=== PATIENT | male | born 1965 | race Caucasian/White ===

== ENCOUNTER 2016-05-12 13:41 | Emergency (ER) | payer BC, OTHER ==
--- NOTE | 2016-05-12 15:04 | REP ---
Clinical: Trauma. Technique: AP, lateral, bilateral oblique views right wrist . Findings: The carpal bones, surrounding osseous structures, soft tissues, and joint spaces are normal. There is no evidence for acute fracture or dislocation. No subcutaneous emphysema or radiodense foreign body. Impression: No acute fracture or dislocation Signed by Reginaldo Bennett MD 05/12/2016 02:56 P
--- NOTE | 2016-05-12 15:10 | EDDOCDS ---
Physician Documentation [facility] Name: Fernando Bourne Age: 50 yrs Sex: Male : 1965 Arrival Date: 05/12/2016 Time: 13:41 Bed 13 Private MD: El Ricardo Disposition: 05/12/16 14:53 Discharged to Home/Self Care. Impression: Unspecified sprain of right wrist. - Condition is Stable. - Discharge Instructions: Wrist Pain, Wrist Splint, [id number]. - Prescriptions for Ibuprofen 600 mg Oral Tablet - take 1 tablet by ORAL route every 6 hours As needed take with food; 30 tablet. - Medication Reconciliation, Local Pharmacy Hours form. - Follow up: El Ricardo; When: 4 - 5 days; Reason: Recheck today's complaints, Continuance of care. Follow up: [facility]; When: Call to arrange an appointment; Reason: Further diagnostic work-up, Continuance of care. - Problem is an ongoing problem. - Symptoms are unchanged. Historical: - Allergies: PENICILLINS; - Home Meds: 1. pantoprazole oral oral Unknown once daily - PMHx: GERD; - PSHx: Cholecystectomy; - Social history: Smoking status: Patient/guardian denies using No barriers to communication noted, The patient speaks fluent Italian. - Family history: Not pertinent. - : The pt / caregiver states he / she is not on anticoagulants. Home medication list is obtained from the patient. - Exposure Risk Screening:: None identified. Vital Signs: 05/12 13:42 BP 155 / 87; Pulse 104; Resp 18 S; Temp 99.3(O); Pulse Ox 98% on R/A; Weight 99.79 kg / gr2 220 lbs (R); Height 6 ft. 0 in. (182.88 cm) (R); Pain 6/10; 15:07 BP 136 / 78; Pulse 89; Resp 16; Temp 98.5(O); Pulse Ox 99% on R/A; Pain 2/10; js13 13:42 Body Mass Index 29.84 (99.79 kg, 182.88 cm) gr2 MDM: 14:28 Wrist, Complete Ordered. EDMS 14:54 Splint ordered. ke Signatures: Dispatcher [employer] EDMS Kacey Gentile RN RN Gabriel Lewis, EVALUATOR TRANSFER STUDENTS EVALUATOR TRANSFER STUDENTS Iliana Coleman,RN RN js13 MTDD
--- NOTE | 2016-05-12 15:10 | EDDOCDS ---
Nurse's Notes [facility] Name: Fernando Bourne Age: 50 yrs Sex: Male : 1965 Arrival Date: 05/12/2016 Time: 13:41 Bed 13 Private MD: El Ricardo Diagnosis: Unspecified sprain of right wrist Presentation: 05/12 13:51 Presenting complaint: Patient states: Pt presents with pain right wrist wrenched it dls while using a drill at work 2-3 weeks ago. Adult Sepsis Screening: The patient does not have new or worsening altered mentation. Patient's respiratory rate is less than 22. Systolic blood pressure is greater than 100. Patient has a qSOFA score of 0- Negative Sepsis Screen. Suicide/Homicide risk assessment- the patient denies having any suicidal and/or homicidal ideations and does not present with any other emotional, behavioral or mental health complaints. Status: Patient is not a claims service representative or dependent. Transition of care: patient was not received from another setting of care. 13:51 Acuity: LUBNA Level 4 dls 13:51 Method Of Arrival: Walkin/Carried/Asstd dls Triage Assessment: 13:53 General: Appears in no apparent distress, Behavior is cooperative. Pain: Pain currently dls is 4 out of 10 on a pain scale. HIV screening NA for this visit Offered previously. Musculoskeletal: No deficits noted. Historical: - Allergies: PENICILLINS; - Home Meds: 1. pantoprazole oral oral Unknown once daily - PMHx: GERD; - PSHx: Cholecystectomy; - Social history: Smoking status: Patient/guardian denies using No barriers to communication noted, The patient speaks fluent Pashto. - Family history: Not pertinent. - : The pt / caregiver states he / she is not on anticoagulants. Home medication list is obtained from the patient. - Exposure Risk Screening:: None identified. Screenin:07 Screening information is obtained from the patient. Fall risk: No risks identified. js13 Assistance ADL's: requires no assistance with activities of daily living. Abuse/DV Screen: The patient / caregiver reports he/she is: not in a situation that causes fear, pain or injury. Nutritional screening: No deficits noted. Advance Directives: There is no active DNR order. home support is adequate. Assessment: 15:07 General: Appears in no apparent distress, comfortable, Behavior is appropriate for age, js13 cooperative. Pain: Location: right hand. Neurological: Level of Consciousness is awake, alert. Respiratory: No deficits noted. Derm: Skin is pink, warm & dry. Musculoskeletal: Circulation, motion, and sensation intact Range of motion intact in right wrist. Vital Signs: 13:42 BP 155 / 87; Pulse 104; Resp 18 S; Temp 99.3(O); Pulse Ox 98% on R/A; Weight 99.79 kg gr2 (R); Height 6 ft. 0 in. (182.88 cm) (R); Pain 6/10; 15:07 BP 136 / 78; Pulse 89; Resp 16; Temp 98.5(O); Pulse Ox 99% on R/A; Pain 2/10; js13 13:42 Body Mass Index 29.84 (99.79 kg, 182.88 cm) gr2 Vitals: 13:42 Log In Time: May 12, 2016 at 13:42. gr2 ED Course: 13:42 Patient visited by Amilcar Clements. gr2 13:42 El Ricardo is Private Physician. gr2 13:42 Patient moved to Waiting gr2 13:44 Patient visited by Amilcar Clements. gr2 13:44 Patient moved to Pre RCE gr2 13:52 Triage Initiated dls 14:08 Iliana Cartwright,RN is Primary Nurse. kcs 14:08 Patient moved to 13 kcs 14:10 [facility]. ke 14:10 Patient visited by Gabriel Hernández FNP. ke 14:10 Patient visited by Gabriel Hernández FNP. ke 14:47 Patient visited by Gabriel Hernández FNP. ke 14:51 El Ricardo is Referral Physician. ke 14:51 [facility] is Referral Physician. ke 15:07 The patient / caregiver is instructed regarding the plan of care and ED course. js13 15:07 No IV's were initiated during this patient's visit. No procedures done that require 13 assistance. Velcro wrist splint applied to right wrist. Patient with positive distal sensation and brisk distal capillary refill after application. Order Results: There are currently no results for this order. Outcome: 14:53 Discharge ordered by Provider. ke 15:07 Discharge Assessment: Patient awake, alert and oriented x 3. No cognitive and/or js13 functional deficits noted. Patient verbalized understanding of disposition instructions. patient administered narcotics - no. The following High Risk Discharge criteria are identified: None. Discharged to home ambulatory, with significant other. Condition: stable. Discharge instructions given to patient, Instructed on discharge instructions, follow up and referral plans. medication usage, Demonstrated understanding of instructions, medications, Pt was receptive of discharge instructions/ teaching. Prescriptions given X 1. No special radiology studies were completed. Property :Personal belongings accompany Pt. 15:10 Patient left the ED. js13 Signatures: Maria Guadalupe Talavera, RN RN Kacey Addison RN RN Gabriel Lewis, Iliana TaylorRN RN js13 Amilcar Clements gr2 MEGHA
--- NOTE | 2016-05-14 16:11 | EDDOCDS ---
Physician Documentation [facility] Name: Fernando Bourne Age: 50 yrs Sex: Male : 1965 Arrival Date: 05/12/2016 Time: 13:41 Bed 13 Private MD: El Ricardo Disposition: 05/12/16 14:53 Discharged to Home/Self Care. Impression: Unspecified sprain of right wrist. - Condition is Stable. - Discharge Instructions: Wrist Pain, Wrist Splint, [id number]. - Prescriptions for Ibuprofen 600 mg Oral Tablet - take 1 tablet by ORAL route every 6 hours As needed take with food; 30 tablet. - Medication Reconciliation, Local Pharmacy Hours form. - Follow up: El Ricardo; When: 4 - 5 days; Reason: Recheck today's complaints, Continuance of care. Follow up: [facility]; When: Call to arrange an appointment; Reason: Further diagnostic work-up, Continuance of care. - Problem is an ongoing problem. - Symptoms are unchanged. Historical: - Allergies: PENICILLINS; - Home Meds: 1. pantoprazole oral oral Unknown once daily - PMHx: GERD; - PSHx: Cholecystectomy; - Social history: Smoking status: Patient/guardian denies using No barriers to communication noted, The patient speaks fluent Greek. - Family history: Not pertinent. - : The pt / caregiver states he / she is not on anticoagulants. Home medication list is obtained from the patient. - Exposure Risk Screening:: None identified. Vital Signs: 05/12 13:42 BP 155 / 87; Pulse 104; Resp 18 S; Temp 99.3(O); Pulse Ox 98% on R/A; Weight 99.79 kg / gr2 220 lbs (R); Height 6 ft. 0 in. (182.88 cm) (R); Pain 6/10; 15:07 BP 136 / 78; Pulse 89; Resp 16; Temp 98.5(O); Pulse Ox 99% on R/A; Pain 2/10; js13 13:42 Body Mass Index 29.84 (99.79 kg, 182.88 cm) gr2 MDM: 14:28 Wrist, Complete Ordered. EDMS 14:54 Splint ordered. ke 15:13 [facility] Payment Agreement was scanned into MED[employer] and attached to record. jp5 15:13 Financial registration complete. jp5 05/13 04:01 T-Sheet-- Draft Copy was scanned into [employer] and attached to record. hs2 Signatures: Dispatcher [employer] Kacey Camarena, RN RN dls Gabriel Hernández, INFECTIOUS DISEASES PHYSICIAN INFECTIOUS DISEASES PHYSICIAN Iliana Coleman RN RN js13 Chase Thomas jp5 Belen Cerda, Reg Reg hs2 The chart was reviewed and I authenticate all verbal orders and agree with the evaluation and treatment provided.Attachments: 05/12 15:13 [facility] Payment Agreement jp5 05/13 04:01 T-Sheet-- Draft Copy hs2 Chart Complete MTDD
--- NOTE | 2016-05-14 16:11 | EDDOCDS ---
Physician Documentation [facility] Name: Fernando Bourne Age: 50 yrs Sex: Male : 1965 Arrival Date: 05/12/2016 Time: 13:41 Bed 13 Private MD: El Ricardo Disposition: 05/12/16 14:53 Discharged to Home/Self Care. Impression: Unspecified sprain of right wrist. - Condition is Stable. - Discharge Instructions: Wrist Pain, Wrist Splint, [id number]. - Prescriptions for Ibuprofen 600 mg Oral Tablet - take 1 tablet by ORAL route every 6 hours As needed take with food; 30 tablet. - Medication Reconciliation, Local Pharmacy Hours form. - Follow up: El Ricardo; When: 4 - 5 days; Reason: Recheck today's complaints, Continuance of care. Follow up: [facility]; When: Call to arrange an appointment; Reason: Further diagnostic work-up, Continuance of care. - Problem is an ongoing problem. - Symptoms are unchanged. Historical: - Allergies: PENICILLINS; - Home Meds: 1. pantoprazole oral oral Unknown once daily - PMHx: GERD; - PSHx: Cholecystectomy; - Social history: Smoking status: Patient/guardian denies using No barriers to communication noted, The patient speaks fluent Yoruba. - Family history: Not pertinent. - : The pt / caregiver states he / she is not on anticoagulants. Home medication list is obtained from the patient. - Exposure Risk Screening:: None identified. Vital Signs: 05/12 13:42 BP 155 / 87; Pulse 104; Resp 18 S; Temp 99.3(O); Pulse Ox 98% on R/A; Weight 99.79 kg / gr2 220 lbs (R); Height 6 ft. 0 in. (182.88 cm) (R); Pain 6/10; 15:07 BP 136 / 78; Pulse 89; Resp 16; Temp 98.5(O); Pulse Ox 99% on R/A; Pain 2/10; js13 13:42 Body Mass Index 29.84 (99.79 kg, 182.88 cm) gr2 MDM: 14:28 Wrist, Complete Ordered. EDMS 14:54 Splint ordered. ke 15:13 [facility] Payment Agreement was scanned into MEDHOST and attached to record. jp5 15:13 Financial registration complete. jp5 05/13 04:01 T-Sheet-- Draft Copy was scanned into [employer] and attached to record. hs2 Signatures: Dispatcher [employer] Kacey Camarena, RN RN dls Gabriel Hernández, SHOP DIRECTOR SHOP DIRECTOR Iliana Coleman RN RN js13 Chase Thomas jp5 Belen Cerda, Reg Reg hs2 The chart was reviewed and I authenticate all verbal orders and agree with the evaluation and treatment provided.Attachments: 05/12 15:13 [facility] Payment Agreement jp5 05/13 04:01 T-Sheet-- Draft Copy hs2 Chart Complete MTDD
--- NOTE | 2016-05-14 16:11 | EDDOCDS ---
Nurse's Notes [facility] Name: Fernando Bourne Age: 50 yrs Sex: Male : 1965 Arrival Date: 05/12/2016 Time: 13:41 Bed 13 Private MD: El Ricardo Diagnosis: Unspecified sprain of right wrist Presentation: 05/12 13:51 Presenting complaint: Patient states: Pt presents with pain right wrist wrenched it dls while using a drill at work 2-3 weeks ago. Adult Sepsis Screening: The patient does not have new or worsening altered mentation. Patient's respiratory rate is less than 22. Systolic blood pressure is greater than 100. Patient has a qSOFA score of 0- Negative Sepsis Screen. Suicide/Homicide risk assessment- the patient denies having any suicidal and/or homicidal ideations and does not present with any other emotional, behavioral or mental health complaints. Status: Patient is not a personal care service provider or dependent. Transition of care: patient was not received from another setting of care. 13:51 Acuity: LUBNA Level 4 dls 13:51 Method Of Arrival: Walkin/Carried/Asstd dls Triage Assessment: 13:53 General: Appears in no apparent distress, Behavior is cooperative. Pain: Pain currently dls is 4 out of 10 on a pain scale. HIV screening NA for this visit Offered previously. Musculoskeletal: No deficits noted. Historical: - Allergies: PENICILLINS; - Home Meds: 1. pantoprazole oral oral Unknown once daily - PMHx: GERD; - PSHx: Cholecystectomy; - Social history: Smoking status: Patient/guardian denies using No barriers to communication noted, The patient speaks fluent Maltese. - Family history: Not pertinent. - : The pt / caregiver states he / she is not on anticoagulants. Home medication list is obtained from the patient. - Exposure Risk Screening:: None identified. Screenin:07 Screening information is obtained from the patient. Fall risk: No risks identified. js13 Assistance ADL's: requires no assistance with activities of daily living. Abuse/DV Screen: The patient / caregiver reports he/she is: not in a situation that causes fear, pain or injury. Nutritional screening: No deficits noted. Advance Directives: There is no active DNR order. home support is adequate. Assessment: 15:07 General: Appears in no apparent distress, comfortable, Behavior is appropriate for age, js13 cooperative. Pain: Location: right hand. Neurological: Level of Consciousness is awake, alert. Respiratory: No deficits noted. Derm: Skin is pink, warm & dry. Musculoskeletal: Circulation, motion, and sensation intact Range of motion intact in right wrist. Vital Signs: 13:42 BP 155 / 87; Pulse 104; Resp 18 S; Temp 99.3(O); Pulse Ox 98% on R/A; Weight 99.79 kg gr2 (R); Height 6 ft. 0 in. (182.88 cm) (R); Pain 6/10; 15:07 BP 136 / 78; Pulse 89; Resp 16; Temp 98.5(O); Pulse Ox 99% on R/A; Pain 2/10; js13 13:42 Body Mass Index 29.84 (99.79 kg, 182.88 cm) gr2 Vitals: 13:42 Log In Time: May 12, 2016 at 13:42. gr2 ED Course: 13:42 Patient visited by Amilcar Clements. gr2 13:42 El Ricardo is Private Physician. gr2 13:42 Patient moved to Waiting gr2 13:44 Patient visited by Amilcar Clements. gr2 13:44 Patient moved to Pre RCE gr2 13:52 Triage Initiated dls 14:08 Iliana Cartwright,RN is Primary Nurse. kcs 14:08 Patient moved to 13 kcs 14:10 [facility] FNP [facility]. ke 14:10 Patient visited by Gabriel Hernández FNP. ke 14:10 Patient visited by Gabriel Hernández FNP. ke 14:47 Patient visited by Gabriel Hernández FNP. ke 14:51 El Ricardo is Referral Physician. ke 14:51 [facility] is Referral Physician. ke 15:07 The patient / caregiver is instructed regarding the plan of care and ED course. js13 15:07 No IV's were initiated during this patient's visit. No procedures done that require js13 assistance. Velcro wrist splint applied to right wrist. Patient with positive distal sensation and brisk distal capillary refill after application. 15:13 [facility] Payment Agreement was scanned into [employer] and attached to record. jp5 15:18 Wrist, Complete Returned. EDMS 05/13 04:01 T-Sheet-- Draft Copy was scanned into [employer] and attached to record. hs2 Order Results: Radiology Order: Wrist, Complete Test: Wrist, Complete REASON FOR EXAMINATION: Trauma; Clinical: Trauma.; ; Technique: AP, lateral, bilateral oblique views right wrist .; ; Findings: The carpal bones, surrounding osseous structures, soft tissues, and; joint spaces are normal. There is no evidence for acute fracture or dislocation.; No subcutaneous emphysema or radiodense foreign body.; ; Impression:; No acute fracture or dislocation; ; ; Signed by; Reginaldo Bennett MD 05/12/2016 02:56 P; Outcome: 05/12 14:53 Discharge ordered by Provider. jacek 15:07 Discharge Assessment: Patient awake, alert and oriented x 3. No cognitive and/or js13 functional deficits noted. Patient verbalized understanding of disposition instructions. patient administered narcotics - no. The following High Risk Discharge criteria are identified: None. Discharged to home ambulatory, with significant other. Condition: stable. Discharge instructions given to patient, Instructed on discharge instructions, follow up and referral plans. medication usage, Demonstrated understanding of instructions, medications, Pt was receptive of discharge instructions/ teaching. Prescriptions given X 1. No special radiology studies were completed. Property :Personal belongings accompany Pt. 15:10 Patient left the ED. js13 Signatures: Dispatcher [facility] Maria Guadalupe Talavera, RN RN Kacey Addison RN RN Gabriel Lewis, PRODUCTION TROUBLESHOOTER PRODUCTION TROUBLESHOOTER Iliana Coleman RN RN js13 Amilcar Clements2 Chase Thomas jp5 Belen Cerda, Reg Reg hs2 Chart Complete [facility]
== END 2016-05-12 15:10 | disposition home or self-care (01) ==
LOC: M ED 13:41
DX: S63.501A Unspecified sprain of right wrist, initial encounter (principal); W23.1XXA Caught, crushed, jammed, or pinched between stationary objects, initial encounter; Y92.89 Other specified places as the place of occurrence of the external cause; Y93.89 Activity, other specified; Y99.0 Civilian activity done for income or pay; K21.9 Gastro-esophageal reflux disease without esophagitis; Z90.49 Acquired absence of other specified parts of digestive tract; Z79.899 Other long term (current) drug therapy; Z88.0 Allergy status to penicillin

== ENCOUNTER 2016-11-13 13:30 | Emergency (ER) | payer BC, OTHER ==
[~2016-11-13] VITALS: Ht 182.9 cm; Wt 103.0 kg
[2016-11-13] MEDS ORDERED: CIAL10TA (13:37)
[2016-11-13] MEDS ORDERED: PANT40TA2 (13:37)
[2016-11-13] MEDS ORDERED: MORPHINE 4 MG/ML 1ML SYRINGE IV PRN (14:30)
[2016-11-13] MEDS ORDERED: KETOROLAC 30 MG/ML VIAL (J1885) IV ONE (14:30)
--- NOTE | 2016-11-13 14:48 | REP ---
Clinical: Renal colic and lower back pain. Comparison: 05/26/2014. Findings: Lung bases are clear. Visualized heart and pericardium normal. Liver, spleen, pancreas, bilateral adrenal glands and kidneys are relatively normal. Subtle 1.3 cm hypodensities in the bilateral kidneys at the lower poles likely represent cysts. There is no hydronephrosis, intrarenal or obstructing ureteral calculi identified. The patient is status post cholecystectomy. The enteric system is without obstruction or acute inflammatory process. Normal terminal ileum and appendix identified in the right lower quadrant. Pelvis demonstrates normal bladder and age appropriate prostate/seminal vesicles. No ascites. No free air. No adenopathy. Abdominal aorta without aneurysm. Impression: 1. Bilateral lower pole renal hypodensities likely representing cysts. No evidence for acute urinary tract pathology. 2. No acute abdominopelvic pathology Signed by Reginaldo Bennett MD 11/13/2016 02:40 P
[2016-11-13 14:52] LABS: BASO % 0.6 % (0.0-1.0); EOS # 0.3 K/mm3 (0.0-0.50); LARGE UNSTAINED CELL # 0.1 K/mm3 (0.0-0.4); LARGE UNSTAINED CELL % 1.5 % (0.0-4.0); LYMPH # 2.2 K/mm3 (1.5-4.5); LYMPH % 34.7 % (24.0-44.0); MEAN CORPUSCULAR HEMOGLOBIN 31.8 pg (27.0-33.0); MEAN CORPUSCULAR HGB CONC 35.2 g/dl (32.0-36.5); MEAN CORPUSCULAR VOLUME 90.5 fl (80.0-96.0); MONO # 0.4 K/mm3 (0.0-0.8); MONO % 5.9 % (0.0-5.0); NEUTROPHILS # 3.2 K/mm3 (1.8-7.7); NEUTROPHILS % 52.4 % (36.0-66.0); PLATELET COUNT, AUTOMATED 178 k/mm3 (150-450); RED CELL DISTRIBUTION WIDTH 14.1 % (11.5-14.5); WHITE BLOOD COUNT 6.1 K/mm3 (4.0-10.0)
[2016-11-13 15:09] LABS: ANION GAP 7 MEQ/L (8-16); BLOOD UREA NITROGEN 15 MG/DL (7-18); CALCIUM LEVEL 8.8 MG/DL (8.5-10.1); CARBON DIOXIDE LEVEL 26 MEQ/L (21-32); CHLORIDE LEVEL 111 MEQ/L (98-107); CREATININE FOR GFR 1.08 MG/DL (0.70-1.30); GLOMERULAR FILTRATION RATE > 60.0 (>56); GLUCOSE, FASTING 88 MG/DL (70-105); POTASSIUM SERUM 4.2 MEQ/L (3.5-5.1); SODIUM LEVEL 144 MEQ/L (136-145)
[2016-11-13] MEDS ORDERED: CYCL10TA PO (15:29)
[2016-11-13] MEDS ORDERED: NAPR500T PO (15:29)
[2016-11-13] MEDS ORDERED: HYDR-3713 PO (15:29)
[2016-11-13 15:32] VITALS: BP 124/79
== END 2016-11-13 16:09 | disposition home or self-care (01) ==
LOC: M ED 13:30
DX: N28.1 Cyst of kidney, acquired (principal); M54.5 Low back pain; Z87.442 Personal history of urinary calculi; F17.210 Nicotine dependence, cigarettes, uncomplicated; Z88.0 Allergy status to penicillin; Z79.899 Other long term (current) drug therapy
CPT/HCPCS: 74176; 80048; 81001; 85025; 96374; 96375; 99283; J1885

== ENCOUNTER → 2017-03-25 | Outpatient (REF) | payer OTHER ==
[~2017-03-25] MED LIST: CIAL10TA; CYCL10TA PO; HYDR-3713 PO; NAPR500T PO; PANT40TA2
[2017-03-27 14:16] LABS: PSA TOTAL 0.5 ng/mL (0.0-4.0)
== END ==
LOC: M LABDRAW1 15:52
PROVIDERS: ATTEND Nurse Practitioner Family
DX: Z12.5 Encounter for screening for malignant neoplasm of prostate (principal)

== ENCOUNTER → 2017-06-22 | Outpatient (REF) | payer OTHER ==
[2017-06-22 19:08] LABS: BASO % 0.5 % (0.0-1.0); EOS # 0.4 10^3/uL (0.0-0.50); EOS % 4.6 % (0.0-3.0); HEMATOCRIT 46.2 % (42.0-52.0); HEMOGLOBIN 15.4 g/dl (14.0-18.0); IMMATURE GRANULOCYTE % 0.4 % (0-3.0); LYMPH # 2.7 10^3/uL (1.5-4.5); MEAN CORPUSCULAR HGB CONC 33.3 g/dl (32.0-36.5); MONO # 0.6 10^3/uL (0.0-0.8); MONO % 7.3 % (0.0-5.0); NEUTROPHILS # 4.2 10^3/uL (1.8-7.7); NEUTROPHILS % 53.2 % (36.0-66.0); PLATELET COUNT, AUTOMATED 179 10^3/uL (150-450); RED BLOOD COUNT 4.97 10^6/uL (4.30-6.10); RED CELL DISTRIBUTION WIDTH 13.2 % (11.5-14.5)
[2017-06-22 19:48] LABS: APPEARANCE, URINE CLEAR (CLEAR); BACTERIA, URINE AUTO NEGATIVE (NEGATIVE); BILIRUBIN, URINE AUTO NEGATIVE (NEGATIVE); BLOOD, URINE BLOOD NEGATIVE (NEGATIVE); CALCIUM OXALATE CRYSTALS SMALL; COLOR, URINE AMBER (YELLOW); GLUCOSE, URINE (UA) AUTO NEGATIVE (NEGATIVE); KETONE, URINE AUTO NEGATIVE (NEGATIVE); LEUKOCYTE ESTERASE, URINE AUTO NEGATIVE (NEGATIVE); MUCUS, URINE SMALL (NEGATIVE); NITRITE, URINE AUTO NEGATIVE (NEGATIVE); PROTEIN, URINE AUTO NEGATIVE (NEGATIVE); RBC, URINE AUTO 1 /HPF (0-3); SPECIFIC GRAVITY URINE AUTO 1.027 (1.002-1.035); SQUAMOUS EPITHELIAL CELL UR AU 0 /HPF (0-6); WBC, URINE AUTO 1 /HPF (0-3)
== END ==
LOC: M LAB REF 17:34
DX: N39.0 Urinary tract infection, site not specified (principal)

== ENCOUNTER → 2017-08-13 | Outpatient (REF) | payer OTHER ==
[2017-08-13 17:19] LABS: APPEARANCE, URINE CLEAR (CLEAR); BACTERIA, URINE AUTO NEGATIVE (NEGATIVE); BILIRUBIN, URINE AUTO NEGATIVE (NEGATIVE); BLOOD, URINE BLOOD NEGATIVE (NEGATIVE); COLOR, URINE AMBER (YELLOW); GLUCOSE, URINE (UA) AUTO NEGATIVE (NEGATIVE); KETONE, URINE AUTO TRACE mg/dL (NEGATIVE); LEUKOCYTE ESTERASE, URINE AUTO NEGATIVE (NEGATIVE); MUCUS, URINE SMALL (NEGATIVE); NITRITE, URINE AUTO NEGATIVE (NEGATIVE); PROTEIN, URINE AUTO NEGATIVE (NEGATIVE); RBC, URINE AUTO 2 /HPF (0-3); SPECIFIC GRAVITY URINE AUTO 1.029 (1.002-1.035); SQUAMOUS EPITHELIAL CELL UR AU 0 /HPF (0-6); WBC, URINE AUTO 1 /HPF (0-3)
== END ==
LOC: M LAB REF 16:28
DX: R39.9 Unspecified symptoms and signs involving the genitourinary system (principal)

== ENCOUNTER → 2017-09-18 | Outpatient (REF) | payer BC, OTHER ==
[2017-09-18 17:26] LABS: APPEARANCE, URINE CLEAR (CLEAR); BACTERIA, URINE AUTO NEGATIVE (NEGATIVE); BILIRUBIN, URINE AUTO NEGATIVE (NEGATIVE); BLOOD, URINE BLOOD NEGATIVE (NEGATIVE); COLOR, URINE AMBER (YELLOW); GLUCOSE, URINE (UA) AUTO NEGATIVE (NEGATIVE); KETONE, URINE AUTO NEGATIVE (NEGATIVE); LEUKOCYTE ESTERASE, URINE AUTO TRACE (NEGATIVE); MUCUS, URINE SMALL (NEGATIVE); NITRITE, URINE AUTO NEGATIVE (NEGATIVE); PROTEIN, URINE AUTO NEGATIVE (NEGATIVE); RBC, URINE AUTO 0 /HPF (0-3); SPECIFIC GRAVITY URINE AUTO 1.028 (1.002-1.035); SQUAMOUS EPITHELIAL CELL UR AU 0 /HPF (0-6); WBC, URINE AUTO 0 /HPF (0-3)
[2017-09-18 18:47] LABS: CHLAMYDIA DNA AMPLIFICATION NEGATIVE (NEGATIVE); GC DNA AMPLIFICATION NEGATIVE (NEGATIVE)
== END ==
LOC: M SMT 16:54
DX: R30.0 Dysuria (principal)
CPT/HCPCS: 81001

== ENCOUNTER → 2017-10-12 | Outpatient (REF) | payer BC, OTHER | LOC: M SMT 17:24 | DX: R30.0 Dysuria (principal) | CPT/HCPCS: 87109 ==

== ENCOUNTER → 2018-03-12 | Outpatient (CLI) | payer BC, OTHER ==
[~2018-03-12] MED LIST changes: -CIAL10TA; -CYCL10TA PO; +E-Z-PAQUE 96% w/w SUSP 176GM BTL As Ordered; -HYDR-3713 PO; -NAPR500T PO; -PANT40TA2
== END ==
LOC: M RAD 07:58
DX: K21.9 Gastro-esophageal reflux disease without esophagitis (principal); R14.2 Eructation; Z86.010 Personal history of colon polyps; R19.5 Other fecal abnormalities
CPT/HCPCS: 74250

== ENCOUNTER → 2018-03-23 | Outpatient (REF) | payer OTHER ==
[2018-03-23 17:41] LABS: PLATELET COUNT, AUTOMATED 207 10^3/uL (150-450)
[2018-03-23 18:09] LABS: INR 1.02; PROTHROMBIN TIME 13.5 SECONDS (12.1-14.4)
[2018-03-23 18:10] LABS: PARTIAL THROMBOPLASTIN TIME 31.4 SECONDS (25.4-37.6)
[2018-03-23 18:22] LABS: COLLAGEN EPINEPHRINE 111 SECONDS (74-162)
== END ==
LOC: M LABNEURO 15:57
DX: Z01.812 Encounter for preprocedural laboratory examination (principal); M50.30 Other cervical disc degeneration, unspecified cervical region
CPT/HCPCS: 85049

== ENCOUNTER → 2018-05-24 | Outpatient (REF) | payer OTHER ==
[~2018-05-24] MED LIST changes: +CIAL10TA; +CYCL10TA PO; -E-Z-PAQUE 96% w/w SUSP 176GM BTL As Ordered; +HYDR-3713 PO; +NAPR-50 PO; +PANT40TA3
[2018-05-24 10:06] LABS: BASO # 0.1 10^3/uL (0.0-0.2); BASO % 0.7 % (0.0-1.0); EOS # 0.3 10^3/uL (0.0-0.50); HEMATOCRIT 48.6 % (42.0-52.0); HEMOGLOBIN 16.1 g/dl (13.5-17.5); LYMPH # 2.4 10^3/uL (1.5-4.5); LYMPH % 28.1 % (24.0-44.0); MEAN CORPUSCULAR HEMOGLOBIN 30.4 pg (27.0-33.0); MEAN CORPUSCULAR HGB CONC 33.1 g/dl (32.0-36.5); MEAN CORPUSCULAR VOLUME 91.7 fl (80.0-96.0); MONO # 0.6 10^3/uL (0.0-0.8); MONO % 6.4 % (0.0-5.0); NEUTROPHILS # 5.2 10^3/uL (1.8-7.7); NEUTROPHILS % 61.6 % (36.0-66.0); PLATELET COUNT, AUTOMATED 163 10^3/uL (150-450); WHITE BLOOD COUNT 8.5 10^3/uL (4.0-10.0)
[2018-05-24 10:35] LABS: ALBUMIN 3.6 GM/DL (3.2-5.2); ALT/SGPT 140 U/L (12-78); BILIRUBIN,TOTAL 0.3 MG/DL (0.2-1.0); BLOOD UREA NITROGEN 12 MG/DL (7-18); CALCIUM LEVEL 8.4 MG/DL (8.5-10.1); CARBON DIOXIDE LEVEL 29 MEQ/L (21-32); CHLORIDE LEVEL 103 MEQ/L (98-107); CHOLESTEROL LEVEL 171 MG/DL (<200); GLOMERULAR FILTRATION RATE > 60.0 (>56); GLUCOSE, FASTING 149 MG/DL (70-100); HDL CHOLESTEROL 20 MG/DL (>40); NON-HDL-C 151 MG/DL; SODIUM LEVEL 140 MEQ/L (136-145); TRIGLYCERIDES LEVEL 716 MG/DL (<150)
[2018-05-24 10:42] LABS: TOTAL 25(OH) VITAMIN D 31.6 NG/ML (30.0-100.0)
[2018-05-26 00:09] LABS: PSA TOTAL 0.4 ng/mL (0.0-4.0)
== END ==
LOC: M LAB REF 08:59
PROVIDERS: ATTEND Nurse Practitioner Family
DX: K21.9 Gastro-esophageal reflux disease without esophagitis (principal); Z12.5 Encounter for screening for malignant neoplasm of prostate; Z13.220 Encounter for screening for lipoid disorders; E55.9 Vitamin D deficiency, unspecified

== ENCOUNTER → 2018-08-11 | Outpatient (REF) | payer OTHER ==
[~2018-08-11] MED LIST changes: -NAPR-50 PO; +NAPR-837 PO
[2018-08-11 10:31] LABS: ALBUMIN 3.7 GM/DL (3.2-5.2); ALT/SGPT 146 U/L (12-78); BILIRUBIN,TOTAL 0.5 MG/DL (0.2-1.0); BLOOD UREA NITROGEN 13 MG/DL (7-18); CALCIUM LEVEL 8.5 MG/DL (8.5-10.1); CARBON DIOXIDE LEVEL 26 MEQ/L (21-32); CHLORIDE LEVEL 109 MEQ/L (98-107); CHOLESTEROL LEVEL 164 MG/DL (<200); CHOLESTEROL RISK RATIO 5.466 (<5); CREATININE FOR GFR 1.21 MG/DL (0.70-1.30); GLOMERULAR FILTRATION RATE > 60.0 (>56); GLUCOSE, FASTING 98 MG/DL (70-100); HDL CHOLESTEROL 30 MG/DL (>40); LDL CHOLESTEROL 103 MG/DL (<100); NON-HDL-C 134 MG/DL; POTASSIUM SERUM 4.4 MEQ/L (3.5-5.1); SODIUM LEVEL 140 MEQ/L (136-145); TOTAL PROTEIN 6.5 GM/DL (6.4-8.2); TRIGLYCERIDES LEVEL 156 MG/DL (<150)
== END ==
LOC: M LAB REF 09:38
PROVIDERS: ATTEND Nurse Practitioner Family
DX: E78.5 Hyperlipidemia, unspecified (principal)

== ENCOUNTER → 2019-03-21 | Outpatient (REF) | payer OTHER ==
[2019-03-21 17:59] LABS: HEMOGLOBIN A1c 5.9 %
[2019-03-21 18:02] LABS: BILIRUBIN,DIRECT 0.1 MG/DL (0.0-0.2); BILIRUBIN,TOTAL 0.6 MG/DL (0.2-1.0); CHOLESTEROL RISK RATIO 4.789 (<5); TOTAL PROTEIN 7.1 GM/DL (6.4-8.2)
[2019-03-21 18:09] LABS: INR 1.09; PROTHROMBIN TIME 13.9 SECONDS (11.8-14.0)
[2019-03-21 18:35] LABS: TOTAL 25(OH) VITAMIN D 46.5 NG/ML (30.0-100.0)
== END ==
LOC: M SFHCPLAZ 14:48
PROVIDERS: ATTEND Family Medicine
DX: E78.2 Mixed hyperlipidemia (principal); R74.0 Nonspecific elevation of levels of transaminase and lactic acid dehydrogenase [LDH]; Z13.1 Encounter for screening for diabetes mellitus; Z13.21 Encounter for screening for nutritional disorder

== ENCOUNTER → 2019-03-28 | Outpatient (CLI) | payer BC, OTHER ==
--- NOTE | 2019-03-28 09:05 | REP ---
ULTRASOUND OF THE ABDOMINAL AORTA: Real-time sonographic evaluation of the abdominal aorta performed. There is no sonographic evidence of abdominal aortic aneurysm. Proximally maximum AP diameter of the abdominal aorta is 2.8 cm, mid aspect 2.2 cm, and distally 1.8 cm. Common iliac arteries are mildly ectatic, right measuring 1.4 cm and left 1.3 cm in AP dimension. IMPRESSION: No sonographic evidence of abdominal aortic aneurysm. Electronically Signed by Jg Hills MD 03/28/2019 09:06 A
== END ==
LOC: M RAD 06:16
PROVIDERS: ATTEND Student in an Organized Health Care Education/Training Program
DX: I71.4 Abdominal aortic aneurysm, without rupture (principal)

== ENCOUNTER → 2019-04-29 | Outpatient (CLI) | payer BC, OTHER ==
--- NOTE | 2019-04-29 15:10 | REP ---
LOW DOSE LUNG SCREENING CT: Low dose lung screening CT performed without the use of intravenous contrast. No suspicious nodule or consolidating infiltrate is seen in either lung. Heart is normal in size. No mediastinal contour abnormality is seen. Thoracic aorta is not dilated. No pleural effusion is seen. There are mild degenerative changes of the spine. IMPRESSION: Lung-RADS category [address] No suspicious nodule bilaterally. Annual low dose lung screening CT recommended. Electronically Signed by Jg Hills MD 04/29/2019 04:56 P
== END ==
LOC: M RAD 14:31
PROVIDERS: ATTEND Student in an Organized Health Care Education/Training Program
DX: Z12.2 Encounter for screening for malignant neoplasm of respiratory organs (principal); F17.210 Nicotine dependence, cigarettes, uncomplicated

== ENCOUNTER → 2019-08-03 | Outpatient (CLI) | payer BC, OTHER ==
--- NOTE | 2019-08-03 07:46 | REP ---
Clinical: Nonalcoholic hepatic steatosis. Technique: Real time hernandez scale ultrasound examination using curved array transducer. Findings: The liver is increased echogenicity suggesting fatty infiltration without focal hepatic lesion identified. The pancreas is normal in appearance and contour. The patient is noted to be status post cholecystectomy. No biliary ductal dilatation is appreciated and the common bile duct measures 4.8 mm diameter. The right kidney is normal in reniform shape without hydronephrosis and measures 12.2 x 7.1 x 5.7 cm; incidental 1.1 cm cyst in the lower pole noted. Visualized abdominal aorta normal. No ascites. Impression: 1. Hepatic steatosis without focal hepatic lesion identified. 2. 1.1 cm simple right renal cyst. Electronically Signed by Reginaldo Bennett MD 08/03/2019 07:37 A
== END ==
LOC: M RAD 06:52
PROVIDERS: ATTEND Internal Medicine Gastroenterology
DX: I85.00 Esophageal varices without bleeding (principal); N28.1 Cyst of kidney, acquired; K76.0 Fatty (change of) liver, not elsewhere classified

== ENCOUNTER → 2019-08-04 | Outpatient (REF) | payer OTHER | LOC: M LAB REF 12:24 | PROVIDERS: ATTEND Nurse Practitioner Family | DX: R30.0 Dysuria (principal) ==

== ENCOUNTER → 2019-08-08 | Outpatient (CLI) | payer BC, OTHER ==
--- NOTE | 2019-08-08 15:19 | REP ---
KUB ABDOMEN AND PELVIS: Two KUB films of abdomen and pelvis performed. Bowel gas pattern is normal with no obstruction. Metallic clips are seen in the right upper quadrant. Phleboliths are again seen in the pelvis. There are mild degenerative changes of the spine. IMPRESSION: No acute abnormalities detected. Normal bowel gas pattern. A few phleboliths are again seen in the pelvis. Electronically Signed by Jg Hills MD 08/08/2019 03:21 P
== END ==
LOC: M WUC 14:37
PROVIDERS: ATTEND Nurse Practitioner Family
DX: I87.8 Other specified disorders of veins (principal); R10.814 Left lower quadrant abdominal tenderness; R30.0 Dysuria

== ENCOUNTER → 2019-08-17 | Outpatient (CLI) | payer BC ==
[2019-08-17 16:25] LABS: HEMATOCRIT 49.4 % (42.0-52.0); HEMOGLOBIN 16.1 g/dl (13.5-17.5); MEAN CORPUSCULAR HEMOGLOBIN 29.8 pg (27.0-33.0); MEAN CORPUSCULAR HGB CONC 32.6 g/dl (32.0-36.5); MEAN CORPUSCULAR VOLUME 91.5 fl (80.0-96.0); PLATELET COUNT, AUTOMATED 176 10^3/uL (150-450); WHITE BLOOD COUNT 6.3 10^3/uL (4.0-10.0)
[2019-08-17 16:27] LABS: ALBUMIN 4.2 GM/DL (3.2-5.2); BILIRUBIN,DIRECT 0.2 MG/DL (0.0-0.2); BILIRUBIN,TOTAL 0.8 MG/DL (0.2-1.0); PERCENT SATURATION 44.3 % (19.7-50.0); THYROID STIMULATING HORMONE 1.44 uIU/ML (0.358-3.740); TOTAL PROTEIN 7.1 GM/DL (6.4-8.2)
[2019-08-17 16:43] LABS: INR 1.07; PROTHROMBIN TIME 13.6 SECONDS (11.8-14.0)
[2019-08-17 16:44] LABS: PARTIAL THROMBOPLASTIN TIME 34.2 SECONDS (25.0-38.4)
[2019-08-17 17:03] LABS: % LABILE ALKALINE PHOSPHATASE 28.09 %
== END ==
LOC: M WUC 10:58
PROVIDERS: ATTEND Nurse Practitioner
DX: K59.1 Functional diarrhea (principal); R14.2 Eructation; R10.30 Lower abdominal pain, unspecified; K76.0 Fatty (change of) liver, not elsewhere classified; I85.00 Esophageal varices without bleeding

== ENCOUNTER → 2019-08-26 | Outpatient (REF) | payer OTHER ==
[~2019-08-26] MED LIST changes: +CYCL-707 PO; -CYCL10TA PO
[2019-08-26 17:36] LABS: BLOOD UREA NITROGEN 11 MG/DL (7-18); CARBON DIOXIDE LEVEL 26 MEQ/L (21-32); CHLORIDE LEVEL 108 MEQ/L (98-107); CREATININE FOR GFR 1.18 MG/DL (0.70-1.30); GLOMERULAR FILTRATION RATE > 60.0 (>56); GLUCOSE, FASTING 84 MG/DL (70-100); POTASSIUM SERUM 3.8 MEQ/L (3.5-5.1); SODIUM LEVEL 140 MEQ/L (136-145)
[2019-08-26 17:37] LABS: ALBUMIN 3.9 GM/DL (3.2-5.2); ALT/SGPT 54 U/L (12-78); BILIRUBIN,TOTAL 0.4 MG/DL (0.2-1.0); CALCIUM LEVEL 8.9 MG/DL (8.5-10.1); TOTAL PROTEIN 6.8 GM/DL (6.4-8.2)
[2019-08-26 18:24] LABS: HIV 1&2 SCREEN CENTAUR NEGATIVE (NEGATIVE)
[2019-08-26 18:28] LABS: CHLAMYDIA DNA AMPLIFICATION NEGATIVE (NEGATIVE); GC DNA AMPLIFICATION NEGATIVE (NEGATIVE)
== END ==
LOC: M SFHCPLAZ 15:42
DX: R30.0 Dysuria (principal); B15.9 Hepatitis A without hepatic coma

== ENCOUNTER → 2019-09-01 | Outpatient (CLI) | payer BC, OTHER ==
[2019-09-01 18:14] LABS: APPEARANCE, URINE CLEAR (CLEAR); BACTERIA, URINE AUTO NEGATIVE (NEGATIVE); BILIRUBIN, URINE AUTO NEGATIVE (NEGATIVE); BLOOD, URINE BLOOD NEGATIVE (NEGATIVE); COLOR, URINE AMBER (YELLOW); GLUCOSE, URINE (UA) AUTO NEGATIVE (NEGATIVE); KETONE, URINE AUTO NEGATIVE (NEGATIVE); LEUKOCYTE ESTERASE, URINE AUTO NEGATIVE (NEGATIVE); NITRITE, URINE AUTO NEGATIVE (NEGATIVE); PROTEIN, URINE AUTO NEGATIVE (NEGATIVE); RBC, URINE AUTO 1 /HPF (0-3); SPECIFIC GRAVITY URINE AUTO 1.019 (1.002-1.035); SQUAMOUS EPITHELIAL CELL UR AU 0 /HPF (0-6); UROBILINOGEN, URINE AUTO 0.2 mg/dL (0.0-2.0); WBC, URINE AUTO 0 /HPF (0-3)
== END ==
LOC: M LAB 09:00
PROVIDERS: ATTEND Nurse Practitioner Women's Health
DX: Z12.5 Encounter for screening for malignant neoplasm of prostate (principal); R30.0 Dysuria
CPT/HCPCS: 36415; 81001; 87086; 88108; G0103

== ENCOUNTER → 2019-09-07 | Outpatient (CLI) | payer BC, OTHER ==
--- NOTE | 2019-09-08 05:40 | REP ---
Clinical: Dysuria. Technique: Real time hernandez scale ultrasound examination using curved array transducer. Findings: The bilateral kidneys are normal in contour, size, echogenicity, and reniform shape without hydronephrosis, nephrolithiasis, or renal mass lesion. Right kidney measures 12.1 x 6.5 x 5.9 cm and includes 18 mm lower pole cyst. Left kidney measures 30.8 x 6.4 x 7.6 cm and includes 3.6 cm lower pole cyst. Impression: Essentially normal renal ultrasound with solitary simple appearing bilateral renal cysts . Electronically Signed by Reginaldo Bennett MD 09/08/2019 05:32 A
--- NOTE | 2019-09-08 05:44 | REP ---
Clinical: Dysuria. Technique: Real time hernandez scale and color evaluation using curved array transducer. Findings: The bladder is normal in appearance without wall thickening or mass lesion. Bilateral ureteral jets are identified. Prevoid bladder measures 344 ml. Postvoid bladder measures 17 ml. Postvoid residual equals 5%. Prostate gland is relatively normal in appearance and measures 3.1 x 3.4 x 3.5 cm (19.0 ml). Impression: Normal bladder ultrasound. Electronically Signed by Reginaldo Bennett MD 09/08/2019 05:35 A
== END ==
LOC: M RAD 09:11
PROVIDERS: ATTEND Nurse Practitioner Women's Health
DX: R30.0 Dysuria (principal); R39.89 Other symptoms and signs involving the genitourinary system; Z87.442 Personal history of urinary calculi; N28.1 Cyst of kidney, acquired

== ENCOUNTER → 2019-10-05 | Outpatient (CLI) | payer BC, OTHER ==
[~2019-10-05] MED LIST changes: +GASTROGRAFIN SOLUTION 30ML (Q9963) As Ordered ONE; +ISOVUE-370 76% 100ML VIAL As Ordered ONE
--- NOTE | 2019-10-06 04:56 | REP ---
Clinical: Generalized abdominal pain. Technique: Axial contrast enhanced images from the lung bases to the pubic symphysis using oral (per protocol) and 100 ml Isovue 370 intravenous contrast material with coronal and sagittal re-formations. Comparison: 10/01/2018. Findings: Hepatic steatosis suggested without focal hepatic lesion. Spleen, pancreas, and bilateral adrenal glands are normal. Evidence of prior cholecystectomy. Kidneys include 1.1 cm simple right renal cyst and 3.1 cm simple left renal cyst. The enteric system is without obstruction or acute inflammatory process. Normal terminal ileum and appendix are identified in the right lower quadrant. Scattered sigmoid diverticula noted without acute diverticulitis. Pelvis demonstrates normal bladder and age appropriate prostate/seminal vesicles. No ascites. No free air. No adenopathy. Abdominal aorta and vasculature appear normal. Musculoskeletal structures are intact. Impression: 1. Simple solitary bilateral renal cysts. 2. Hepatic steatosis. 3. Sigmoid diverticula without acute diverticulitis. Electronically Signed by Reginaldo Bennett MD 10/06/2019 04:48 A
== END ==
LOC: M RAD 08:01
PROVIDERS: ATTEND Student in an Organized Health Care Education/Training Program
DX: R10.9 Unspecified abdominal pain (principal)
CPT/HCPCS: 74177; Q9963; Q9967

== ENCOUNTER → 2019-10-25 | Outpatient (REF) | payer OTHER ==
[~2019-10-25] MED LIST changes: +AMOX875T; +CVS1CAP2 PO; +GABA-1171; -GASTROGRAFIN SOLUTION 30ML (Q9963) As Ordered ONE; -ISOVUE-370 76% 100ML VIAL As Ordered ONE; +PANT40TA29; -PANT40TA3; +SOLI10TA; +TAMS1CAP17; +VITAD400CA FT
== END ==
LOC: M LAB REF 14:39
PROVIDERS: ATTEND Internal Medicine Gastroenterology
DX: K59.1 Functional diarrhea (principal); R19.5 Other fecal abnormalities; R10.32 Left lower quadrant pain

== ENCOUNTER → 2019-11-04 | Outpatient (CLI) | payer OTHER ==
[~2019-11-04] MED LIST changes: -AMOX875T; -CVS1CAP2 PO; -GABA-1171; -PANT40TA29; +PANT40TA3; -SOLI10TA; -TAMS1CAP17; -VITAD400CA FT
[2019-11-04 17:08] LABS: BASO % 0.6 % (0.0-1.0); EOS # 0.1 10^3/uL (0.0-0.5); EOS % 1.3 % (0.0-3.0); HEMATOCRIT 43.2 % (42.0-52.0); HEMOGLOBIN 14.2 g/dl (13.5-17.5); LYMPH # 1.7 10^3/uL (1.5-5.0); LYMPH % 32.4 % (24.0-44.0); MEAN CORPUSCULAR HEMOGLOBIN 30.7 pg (27.0-33.0); MEAN CORPUSCULAR HGB CONC 32.9 g/dl (32.0-36.5); MEAN CORPUSCULAR VOLUME 93.3 fl (80.0-96.0); MONO # 0.3 10^3/uL (0.0-0.8); NEUTROPHILS # 3.1 10^3/uL (1.5-8.5); NEUTROPHILS % 59.3 % (36.0-66.0); PLATELET COUNT, AUTOMATED 171 10^3/uL (150-450); RED BLOOD COUNT 4.63 10^6/uL (4.30-6.10); WHITE BLOOD COUNT 5.2 10^3/uL (4.0-10.0)
[2019-11-04 17:26] LABS: ALBUMIN 4.1 GM/DL (3.2-5.2); ALT/SGPT 58 U/L (12-78); BILIRUBIN,TOTAL 0.7 MG/DL (0.2-1.0); BLOOD UREA NITROGEN 15 MG/DL (7-18); CALCIUM LEVEL 8.9 MG/DL (8.5-10.1); CARBON DIOXIDE LEVEL 25 MEQ/L (21-32); CHLORIDE LEVEL 108 MEQ/L (98-107); CREATININE FOR GFR 1.08 MG/DL (0.70-1.30); GLOMERULAR FILTRATION RATE > 60.0 (>56); GLUCOSE, FASTING 103 MG/DL (70-100); POTASSIUM SERUM 3.9 MEQ/L (3.5-5.1); SODIUM LEVEL 139 MEQ/L (136-145); TOTAL PROTEIN 6.8 GM/DL (6.4-8.2)
== END ==
LOC: M WUC 10:47
PROVIDERS: ATTEND Physician Assistant
DX: M79.10 Myalgia, unspecified site (principal)

== ENCOUNTER → 2019-11-04 | Outpatient (CLI) | payer OTHER ==
[2019-11-04 17:06] LABS: APPEARANCE, URINE CLEAR (CLEAR); BACTERIA, URINE AUTO NEGATIVE (NEGATIVE); BILIRUBIN, URINE AUTO NEGATIVE (NEGATIVE); BLOOD, URINE BLOOD NEGATIVE (NEGATIVE); COLOR, URINE YELLOW (YELLOW); GLUCOSE, URINE (UA) AUTO NEGATIVE (NEGATIVE); KETONE, URINE AUTO NEGATIVE (NEGATIVE); LEUKOCYTE ESTERASE, URINE AUTO NEGATIVE (NEGATIVE); NITRITE, URINE AUTO NEGATIVE (NEGATIVE); PROTEIN, URINE AUTO NEGATIVE (NEGATIVE); RBC, URINE AUTO 2 /HPF (0-3); SPECIFIC GRAVITY URINE AUTO 1.005 (1.002-1.035); SQUAMOUS EPITHELIAL CELL UR AU 0 /HPF (0-6); UROBILINOGEN, URINE AUTO 0.2 mg/dL (0.0-2.0); WBC, URINE AUTO 0 /HPF (0-3)
== END ==
LOC: M WUC 10:54
PROVIDERS: ATTEND Urology
DX: R30.0 Dysuria (principal)

== ENCOUNTER → 2019-11-13 | Outpatient (CLI) | payer BC, OTHER | LOC: M LABSMTC 09:32 | PROVIDERS: ATTEND Physical Medicine & Rehabilitation | DX: Z03.818 Encounter for observation for suspected exposure to other biological agents ruled out (principal); Z11.59 Encounter for screening for other viral diseases ==

== ENCOUNTER → 2019-11-14 | Outpatient (REF) | payer OTHER ==
[~2019-11-14] MED LIST changes: +PANT40TA29; -PANT40TA3
== END ==
LOC: M SMT 17:12
PROVIDERS: ATTEND Urology
DX: N32.9 Bladder disorder, unspecified (principal)

== ENCOUNTER → 2019-11-18 | Outpatient (CLI) | payer OTHER ==
[2019-11-18 14:32] LABS: HEMATOCRIT 42.2 % (42.0-52.0); HEMOGLOBIN 14.1 g/dl (13.5-17.5); MEAN CORPUSCULAR HEMOGLOBIN 31.2 pg (27.0-33.0); MEAN CORPUSCULAR HGB CONC 33.4 g/dl (32.0-36.5); MEAN CORPUSCULAR VOLUME 93.4 fl (80.0-96.0); PLATELET COUNT, AUTOMATED 163 10^3/uL (150-450); RED BLOOD COUNT 4.52 10^6/uL (4.30-6.10); WHITE BLOOD COUNT 6.9 10^3/uL (4.0-10.0)
[2019-11-18 15:02] LABS: ALBUMIN 4.1 GM/DL (3.2-5.2); ALT/SGPT 33 U/L (12-78); BILIRUBIN,TOTAL 0.5 MG/DL (0.2-1.0); BLOOD UREA NITROGEN 11 MG/DL (7-18); C REACTIVE PROTEIN QUANTITATIV < 0.30 MG/DL (0.00-0.30); CALCIUM LEVEL 8.8 MG/DL (8.5-10.1); CARBON DIOXIDE LEVEL 28 MEQ/L (21-32); CHLORIDE LEVEL 108 MEQ/L (98-107); CREATININE FOR GFR 1.08 MG/DL (0.70-1.30); GLOMERULAR FILTRATION RATE > 60.0 (>56); GLUCOSE, FASTING 83 MG/DL (70-100); POTASSIUM SERUM 4.1 MEQ/L (3.5-5.1); SODIUM LEVEL 140 MEQ/L (136-145); TOTAL PROTEIN 6.6 GM/DL (6.4-8.2)
[2019-11-18 15:07] LABS: TOTAL 25(OH) VITAMIN D 41.4 NG/ML (30.0-100.0); VITAMIN B12 LEVEL 268 PG/ML (247-911)
[2019-11-18 15:16] LABS: ERYTHROCYTE SEDIMENTATION RATE 4 mm/hr (0-20)
== END ==
LOC: M WUC 13:48
PROVIDERS: ATTEND Internal Medicine Gastroenterology
DX: R10.30 Lower abdominal pain, unspecified (principal); R19.5 Other fecal abnormalities; K21.9 Gastro-esophageal reflux disease without esophagitis; E55.9 Vitamin D deficiency, unspecified

== ENCOUNTER → 2019-11-26 | Outpatient (CLI) | payer OTHER, BC | LOC: M LABSMTC 08:37 | PROVIDERS: ATTEND Physical Medicine & Rehabilitation | DX: Z03.818 Encounter for observation for suspected exposure to other biological agents ruled out (principal); Z11.59 Encounter for screening for other viral diseases ==

== ENCOUNTER → 2020-02-17 | Outpatient (CLI) | payer BC, OTHER ==
[~2020-02-17] MED LIST changes: +ISOVUE-300 61% 50ML VIAL As Ordered ONE; +LIDOCAINE 1% MDV 20ML VIAL As Ordered ONE
--- NOTE | 2020-02-22 14:59 | REP ---
INTRAARTICULAR JOINT INJECTION The procedure was performed by KAYLI Adames, under the direct supervision of Dr. Hills. The risks and benefits of the procedure were explained to the patient and an informed consent was obtained both verbally and written. Directly prior to the start of the procedure, a formal time-out was completed in the procedure room. The right glenohumeral joint space was localized using fluoroscopic guidance. The skin was prepped and draped in a sterile fashion. 5 mL of 1% Lidocaine 10 mg/mL was used as a local anesthetic. Using fluoroscopic guidance, a 22-gauge spinal needle was inserted and advanced into the right glenohumeral joint space. Approximately 1 mL of Isovue-300 was used to verify placement. 4 mL of 1% Lidocaine 10 mg/mL was injection into the joint space as per the doctor order. The patient tolerated the procedure well and there were no immediate complications. 0.2 minutes of fluoroscopy time was utilized for this procedure. MEGHA
== END ==
LOC: M RADPRO 12:11
PROVIDERS: ATTEND Physician Assistant
DX: M24.111 Other articular cartilage disorders, right shoulder (principal)
CPT/HCPCS: 20610; 77002; Q9967

== ENCOUNTER → 2020-03-14 | Outpatient (REF) | payer BC, OTHER ==
[~2020-03-14] MED LIST changes: -ISOVUE-300 61% 50ML VIAL As Ordered ONE; -LIDOCAINE 1% MDV 20ML VIAL As Ordered ONE
[2020-03-14 04:40] LABS: HEMOGLOBIN A1c 5.7 %
[2020-03-14 04:42] LABS: ALBUMIN 3.6 GM/DL (3.2-5.2); ALT/SGPT 61 U/L (12-78); BILIRUBIN,TOTAL 0.5 MG/DL (0.2-1.0); BLOOD UREA NITROGEN 15 MG/DL (7-18); CALCIUM LEVEL 8.8 MG/DL (8.5-10.1); CARBON DIOXIDE LEVEL 27 MEQ/L (21-32); CHLORIDE LEVEL 111 MEQ/L (98-107); CREATININE FOR GFR 1.01 MG/DL (0.70-1.30); GLOMERULAR FILTRATION RATE > 60.0 (>56); GLUCOSE, FASTING 101 MG/DL (70-100); POTASSIUM SERUM 4.1 MEQ/L (3.5-5.1); SODIUM LEVEL 141 MEQ/L (136-145); TOTAL PROTEIN 6.5 GM/DL (6.4-8.2)
== END ==
LOC: M LAB 04:08
PROVIDERS: ATTEND Family Medicine
DX: Z13.1 Encounter for screening for diabetes mellitus (principal); Z13.220 Encounter for screening for lipoid disorders

== ENCOUNTER → 2020-03-21 | Outpatient (REF) | payer OTHER ==
[2020-03-21 13:14] LABS: BASO # 0.1 10^3/uL (0.0-0.2); BASO % 0.9 % (0.0-1.0); EOS # 0.2 10^3/uL (0.0-0.5); EOS % 3.4 % (0.0-3.0); HEMATOCRIT 45.3 % (42.0-52.0); LYMPH % 34.8 % (24.0-44.0); MEAN CORPUSCULAR HEMOGLOBIN 30.2 pg (27.0-33.0); MEAN CORPUSCULAR HGB CONC 33.1 g/dl (32.0-36.5); MEAN CORPUSCULAR VOLUME 91.3 fl (80.0-96.0); MONO # 0.4 10^3/uL (0.0-0.8); MONO % 6.4 % (0.0-5.0); NEUTROPHILS # 3.1 10^3/uL (1.5-8.5); NEUTROPHILS % 54.3 % (36.0-66.0); PLATELET COUNT, AUTOMATED 165 10^3/uL (150-450); RED BLOOD COUNT 4.96 10^6/uL (4.30-6.10); WHITE BLOOD COUNT 5.6 10^3/uL (4.0-10.0)
== END ==
LOC: M SFHCPLAZ 11:06
PROVIDERS: ATTEND Physician Assistant
DX: R10.2 Pelvic and perineal pain (principal)
CPT/HCPCS: 36415; 85025; G0103

== ENCOUNTER → 2020-04-26 | Outpatient (CLI) | payer OTHER, BC | LOC: M LABSMTC 14:02 | PROVIDERS: ATTEND Physician Assistant | DX: Z01.812 Encounter for preprocedural laboratory examination (principal); Z20.828 Contact with and (suspected) exposure to other viral communicable diseases ==

== ENCOUNTER → 2020-05-10 | Outpatient (CLI) | payer BC, OTHER | LOC: M LABSMTC 13:27 | PROVIDERS: ATTEND Physician Assistant | DX: Z20.828 Contact with and (suspected) exposure to other viral communicable diseases (principal) ==

== ENCOUNTER 2020-06-12 13:57 | Emergency (ER) | payer BC, OTHER ==
[~2020-06-12] VITALS: Ht 182.9 cm; Wt 110.6 kg
[2020-06-12] MEDS ORDERED: TAMS1CAP17 (14:34)
[2020-06-12] MEDS ORDERED: AMOX875T (14:34)
[2020-06-12] MEDS ORDERED: GABA-1171 (14:34)
[2020-06-12] MEDS ORDERED: VITAD400CA FT (14:34)
[2020-06-12] MEDS ORDERED: SOLI10TA (14:34)
[2020-06-12] MEDS ORDERED: CVS1CAP2 PO (14:35)
[2020-06-12 14:47] VITALS: O2SAT 94
[2020-06-12 14:52] LABS: BASO # 0.1 10^3/uL (0.0-0.2); BASO % 0.7 % (0.0-1.0); EOS # 0.1 10^3/uL (0.0-0.5); EOS % 1.4 % (0.0-3.0); HEMATOCRIT 49.2 % (42.0-52.0); HEMOGLOBIN 16.5 g/dl (13.5-17.5); LYMPH # 1.9 10^3/uL (1.5-5.0); LYMPH % 24.8 % (24.0-44.0); MEAN CORPUSCULAR HEMOGLOBIN 29.8 pg (27.0-33.0); MEAN CORPUSCULAR HGB CONC 33.5 g/dl (32.0-36.5); MEAN CORPUSCULAR VOLUME 88.8 fl (80.0-96.0); MONO # 0.4 10^3/uL (0.0-0.8); MONO % 5.1 % (0.0-5.0); NEUTROPHILS # 5.2 10^3/uL (1.5-8.5); NEUTROPHILS % 67.5 % (36.0-66.0); PLATELET COUNT, AUTOMATED 183 10^3/uL (150-450); RED BLOOD COUNT 5.54 10^6/uL (4.30-6.10); WHITE BLOOD COUNT 7.6 10^3/uL (4.0-10.0)
[2020-06-12 15:13] LABS: INR 0.96; PARTIAL THROMBOPLASTIN TIME 28.6 SECONDS (24.2-38.5)
[2020-06-12 15:16] LABS: D-DIMER QUANT 279.82 ng/ml (<500)
--- NOTE | 2020-06-12 15:31 | REP ---
INDICATION: R/O DVT. COMPARISON: None. TECHNIQUE: Bilateral lower extremity duplex venous ultrasound. FINDINGS: The deep veins are anechoic and fully compressible from the groin to the popliteal fossa in the left and right lower extremity. Color flow imaging is homogeneous. Spectral Doppler interrogation demonstrates intact respiratory variation in flow and normal manual augmentation of flow. There is no evidence of deep vein thrombosis. IMPRESSION: Negative bilateral lower extremity duplex venous ultrasound. No evidence of deep vein thrombosis. <Electronically signed by Hema Kellogg > 06/12/20 [id number]
[2020-06-12 15:50] LABS: ALBUMIN 4.1 GM/DL (3.2-5.2); ALT/SGPT 73 U/L (12-78); BILIRUBIN,TOTAL 0.4 MG/DL (0.2-1.0); BLOOD UREA NITROGEN 14 MG/DL (7-18); CALCIUM LEVEL 9.3 MG/DL (8.5-10.1); CARBON DIOXIDE LEVEL 27 MEQ/L (21-32); CHLORIDE LEVEL 107 MEQ/L (98-107); CREATININE FOR GFR 1.21 MG/DL (0.70-1.30); FREE T4 1.04 NG/DL (0.76-1.46); GLOMERULAR FILTRATION RATE > 60.0 (>56); GLUCOSE, FASTING 104 MG/DL (70-100); RHEUMATOID FACTOR QUANT < 10.0 IU/ML (<15.0); SODIUM LEVEL 139 MEQ/L (136-145); TOTAL PROTEIN 7.1 GM/DL (6.4-8.2); VITAMIN B12 LEVEL 316 PG/ML (247-911)
[2020-06-12 15:54] LABS: HEMOGLOBIN A1c 5.8 %
[2020-06-12 16:20] VITALS: BP 140/80
[2020-06-12 16:21] LABS: ERYTHROCYTE SEDIMENTATION RATE 2 mm/hr (0-20)
== END 2020-06-12 16:20 | disposition home or self-care (01) ==
LOC: M ED 13:57
DX: R20.2 Paresthesia of skin (principal); E66.9 Obesity, unspecified; Z87.442 Personal history of urinary calculi; K21.9 Gastro-esophageal reflux disease without esophagitis; G47.33 Obstructive sleep apnea (adult) (pediatric); N32.81 Overactive bladder; F17.200 Nicotine dependence, unspecified, uncomplicated; Z79.899 Other long term (current) drug therapy; Z88.0 Allergy status to penicillin

== ENCOUNTER → 2020-06-25 | Outpatient (CLI) | payer BC, OTHER ==
[~2020-06-25] MED LIST changes: +AMOX875T; +CVS1CAP2 PO; +GABA-1171; +SOLI10TA; +TAMS1CAP17; +VITAD400CA FT
--- NOTE | 2020-06-26 05:49 | REP ---
INDICATION: LUNG CANCER SCREENING COMPARISON: 04/29/2019 TECHNIQUE: Axial noncontrast images from the thoracic inlet to the upper abdomen using low-dose lung screening technique (LDCT). FINDINGS: Bilateral lung membreno are well aerated, relatively symmetric and essentially clear. There is a subtle area of perifissural non solid opacity abutting the superior aspect of the right major fissure with small semi-solid central nodular component measuring 6 mm (image 39). No further consolidation, suspicious nodule or mass lesion. No effusion. No pneumothorax. Tracheobronchial tree is patent. IMPRESSION: Lung rads category 3. Probably benign small area non solid opacity with central 6 mm semi-solid component. Management recommendations include 6 month low-dose CT follow-up evaluation. <Electronically signed by Reginaldo Bennett > 06/26/20 0512
== END ==
LOC: M RAD 12:43
PROVIDERS: ATTEND Family Medicine
DX: R91.8 Other nonspecific abnormal finding of lung field (principal); F17.210 Nicotine dependence, cigarettes, uncomplicated

== ENCOUNTER → 2020-06-29 | Outpatient (CLI) | payer BC, OTHER ==
--- NOTE | 2020-06-29 10:52 | REPVR ---
PROCEDURE INFORMATION: Exam: MR Cervical Spine Without Contrast Exam date and time: 06/29/2020 9:31 AM Age: 55 years old Clinical indication: Condition or disease; Other: Cervical stenosis TECHNIQUE: Imaging protocol: Multiplanar magnetic resonance images of the cervical spine without contrast. COMPARISON: No relevant prior studies available. FINDINGS: Vertebrae: There is partial straightening of mid cervical lordosis. There is minimal anterolisthesis of C3 on C4 and retrolisthesis of C5 on C6. Craniocervical junction appears unremarkable. Normal position of cerebellar tonsils without evidence of Chiari I malformation. Vertebral body marrow signal is unremarkable. Spinal cord: Cervical spinal cord signal is normal without intrinsic cord lesions. C2-C3: There is mild bilateral facet degeneration. There is no significant disc bulge. There is no significant cord compression. There is no neural foraminal or spinal stenosis. C3-C4: There is mild posterior osteophyte disc complex and a focal approximately 2 mm central disc protrusion. There is mild effacement of ventral subarachnoid space. There is no significant cord compression or spinal stenosis. There are uncinate and facet osteophytes with mild bilateral neural foraminal narrowing. C4-C5: There is posterior osteophyte disc complex. There is mild effacement of ventral subarachnoid space. There is no significant cord compression or spinal stenosis. There are uncinate and facet osteophytes moderate bilateral neural foraminal narrowing. C5-C6: There is posterior osteophyte disc complex with mild effacement of ventral subarachnoid space. There is no significant cord compression or spinal stenosis. There are uncinate and facet osteophytes with severe bilateral neural foraminal narrowing. C6-C7: There is posterior osteophyte disc complex. There is mild thickening ligamentum flavum. There is no significant cord compression or spinal stenosis. There are uncinate and facet osteophytes with mild bilateral neural foraminal narrowing. C7-T1: There is no significant disc bulge. There is no significant cord compression. There is no neural foraminal or spinal stenosis. Soft tissues: Unremarkable. Vertebral arteries: Expected flow voids in the vertebral arteries. IMPRESSION: Degenerative changes without significant spinal stenosis or cord impingement. Neural foraminal narrowing greatest at C5-C6 bilaterally. Electronically signed by: Jocelyn Wilson On 06/29/2020 10:53:17 AM
== END ==
LOC: M PLARAD 07:46
PROVIDERS: ATTEND Family Medicine
DX: M48.02 Spinal stenosis, cervical region (principal)

== ENCOUNTER 2020-07-21 06:52 | Emergency (ER) | payer BC, OTHER ==
[~2020-07-21] VITALS: Ht 182.9 cm; Wt 109.3 kg
[2020-07-21] MEDS ORDERED: DOXY100C37 (07:13)
[2020-07-21] MEDS ORDERED: FLOM0.4C39 PO (07:13)
[2020-07-21 07:30] LABS: BASO # 0.1 10^3/uL (0.0-0.2); BASO % 0.7 % (0.0-1.0); EOS # 0.2 10^3/uL (0.0-0.5); EOS % 2.4 % (0.0-3.0); HEMATOCRIT 48.6 % (42.0-52.0); HEMOGLOBIN 16.3 g/dl (13.5-17.5); LYMPH # 1.9 10^3/uL (1.5-5.0); MEAN CORPUSCULAR HEMOGLOBIN 29.9 pg (27.0-33.0); MEAN CORPUSCULAR HGB CONC 33.5 g/dl (32.0-36.5); MONO # 0.5 10^3/uL (0.0-0.8); MONO % 7.5 % (2.0-8.0); NEUTROPHILS # 4.4 10^3/uL (1.5-8.5); PLATELET COUNT, AUTOMATED 155 10^3/uL (150-450); RED BLOOD COUNT 5.46 10^6/uL (4.30-6.10); WHITE BLOOD COUNT 7.1 10^3/uL (4.0-10.0)
[2020-07-21] MEDS ORDERED: ALBUTEROL 90 MCG/ACT 8GM HFA INHALER INH ONE (07:50)
--- NOTE | 2020-07-21 08:38 | REP ---
INDICATION: CHEST PAIN COMPARISON: None. TECHNIQUE: PA and lateral. FINDINGS: The mediastinum and cardiac silhouette are normal. The lung membreno are clear and without acute consolidation, effusion, or pneumothorax. The skeletal structures are intact and normal. IMPRESSION: No acute cardiopulmonary process. <Electronically signed by Reginaldo Bennett > 07/21/20 [id number]
[2020-07-21] MEDS ORDERED: MUCI600T31 PO (08:53)
[2020-07-21] MEDS ORDERED: FLON1SPR NARES (08:53)
[2020-07-21] MEDS ORDERED: VENTAER INH (08:53)
[2020-07-21 08:57] VITALS: BP 177/101
--- NOTE | 2020-07-21 12:58 | ECGEPIP ---
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
== END 2020-07-21 09:00 | disposition home or self-care (01) ==
LOC: M ED 06:52
DX: J01.90 Acute sinusitis, unspecified (principal); K21.9 Gastro-esophageal reflux disease without esophagitis; N40.0 Benign prostatic hyperplasia without lower urinary tract symptoms; G89.29 Other chronic pain; M54.2 Cervicalgia; F17.200 Nicotine dependence, unspecified, uncomplicated; Z79.899 Other long term (current) drug therapy; Z88.0 Allergy status to penicillin

== ENCOUNTER → 2020-08-03 | Outpatient (CLI) | payer BC, OTHER ==
[~2020-08-03] MED LIST changes: +DOXY100C37; +FLOM0.4C39 PO; +FLON1SPR NARES; +MUCI600T31 PO; +VENTAER INH
--- NOTE | 2020-08-03 18:13 | REP ---
INDICATION: CHRONIC SINUSITIS, UNSPECIFIED. COMPARISON: NONE. TECHNIQUE: Helical scanning is acquired and 2 mm axial images re-formatted. Coronal MPR images are generated and reviewed. FINDINGS: Preliminary digital pyrotechnist radiographs are unremarkable. The maxillary sinuses are clear. Ethmoid sinuses show some septal thickening anteriorly on both sides mild in degree. The frontal sinuses are small. There is mucosal thickening in the floor of the left frontal sinus. Sphenoid sinuses are clear. Mastoid aeration is normal and symmetric. Middle ear cavities are aerated fully bilaterally. No intraorbital abnormality is seen. The facial soft tissues are unremarkable. The visualized intracranial structures are unremarkable. There is mild mucosal thickening at the ostium of the right ostiomeatal complex. The left OMC is widely patent. Nasal ethmoid recesses are clear. IMPRESSION: Mucosal paranasal sinus changes as above. <Electronically signed by Hema Kellogg > 08/03/20 [id number]
== END ==
LOC: M RAD 16:25
PROVIDERS: ATTEND Family Medicine
DX: J32.9 Chronic sinusitis, unspecified (principal)

== ENCOUNTER → 2020-10-22 | Outpatient (CLI) | payer BC, OTHER ==
[~2020-10-22] MED LIST changes: +ISOVUE-370 76% 100ML VIAL As Ordered ONE
--- NOTE | 2020-10-22 17:36 | REPVR ---
PROCEDURE INFORMATION: Exam: CT Neck With Contrast Exam date and time: 10/22/2020 4:41 PM Age: 55 years old Clinical indication: Mass, lump, or swelling in neck; Additional info: Swelling mass lump in neck TECHNIQUE: Imaging protocol: Computed tomography images of the neck with contrast. Radiation optimization: All CT scans at this facility use at least one of these dose optimization techniques: automated exposure control; mA and/or kV adjustment per patient size (includes targeted exams where dose is matched to clinical indication); or iterative reconstruction. Contrast material: ISOVUE 370; Contrast volume: 75 ml; Contrast route: INTRAVENOUS (IV); COMPARISON: MRI-Spine,Cervical without con 06/29/2020 8:38 AM FINDINGS: Nasopharynx: Unremarkable. Oropharynx: Unremarkable. No significant tonsillar enlargement. Hypopharynx: Unremarkable. Larynx: Unremarkable. Normal epiglottis. Retropharyngeal space: Unremarkable. Submandibular/Parotid glands: Normal. Glands are normal in size. Thyroid: Normal. No enlarged or calcified nodules. Lymph nodes: Unremarkable. No lymphadenopathy. Trachea: Visualized trachea is unremarkable. Lungs: Unremarkable as visualized. Bones/joints: Moderate degenerative changes of the cervical spine are present. Soft tissues: Unremarkable. No significant soft tissue swelling. IMPRESSION: No acute abnormality. Electronically signed by: Manuel Henriquez On 10/22/2020 17:36:17 PM
== END ==
LOC: M RAD 16:25
PROVIDERS: ATTEND Otolaryngology
DX: R22.1 Localized swelling, mass and lump, neck (principal); M50.30 Other cervical disc degeneration, unspecified cervical region
CPT/HCPCS: 70491; Q9967

== ENCOUNTER → 2020-10-29 | Outpatient (CLI) | payer BC, OTHER ==
[~2020-10-29] MED LIST changes: -DOXY100C37; +DOXY1CAP62; +E-Z-GAS II EFFERVESCENT PACKET (SODIUM BICARB./CITRIC ACID/SIMETHICONE) As Ordered ONE; +E-Z-HD 98% w/w 340GM SUSP BTL As Ordered ONE; +E-Z-PAQUE 96% w/w SUSP 176GM BTL As Ordered ONE; -ISOVUE-370 76% 100ML VIAL As Ordered ONE
--- NOTE | 2020-10-30 08:41 | REP ---
INDICATION: LOCALIZED SWELLING IN NECK. COMPARISON: Upper GI with contrast dated 06/02/2014. TECHNIQUE: This procedure was performed by Rosalinda Ewing [facility], under the direct supervision of Dr. Hills. Images were reviewed with Dr. Hills prior to dictation. Liquid barium and gas producing crystals were given in the erect position, as well as liquid barium in the prone oblique position in order to perform a double contrast esophagram examination. FINDINGS: A single view PA chest x-ray is submitted as a news broadcaster film. The superior mediastinal structures are midline. The heart size is within normal limits. The lungs are clear. The oral and pharyngeal stages of deglutition were unremarkable. There is mild transient cricopharyngeal hyperplasia. Esophageal transport is prompt and efficient and there is no evidence of esophagitis, stricture, or mucosal ring. There is evidence of a moderate sized hiatal hernia. Gastroesophageal reflux was visualized to the level of the prieto. IMPRESSION: 1. Moderate-sized hiatal hernia is again visualized. Gastroesophageal reflux to the level of the prieto. 0.1 minutes of fluoroscopy time was utilized for this procedure. Some fluoroscopic images are performed with last image hold technology. These images require no additional radiation. <Electronically signed by Rosalinda Ewing > 10/29/20 [id number] <Electronically signed by Jg Hills > 10/30/20 [id number]
== END ==
LOC: M RAD 10:02
PROVIDERS: ATTEND Otolaryngology
DX: R22.1 Localized swelling, mass and lump, neck (principal); K44.9 Diaphragmatic hernia without obstruction or gangrene; K21.9 Gastro-esophageal reflux disease without esophagitis

== ENCOUNTER → 2020-12-31 | Outpatient (CLI) | payer BC, OTHER ==
[~2020-12-31] MED LIST changes: -E-Z-GAS II EFFERVESCENT PACKET (SODIUM BICARB./CITRIC ACID/SIMETHICONE) As Ordered ONE; -E-Z-HD 98% w/w 340GM SUSP BTL As Ordered ONE; -E-Z-PAQUE 96% w/w SUSP 176GM BTL As Ordered ONE
--- NOTE | 2020-12-31 11:20 | REP ---
INDICATION: LUNG NODULE COMPARISON: 06/25/2020 and 04/29/2019 both low-dose screening CT examination of the lungs TECHNIQUE: Standard helical technique without intravenous contrast FINDINGS: The mediastinum and pulmonary donovan are within normal limits. There is no evidence of a mass or adenopathy. The imaged upper abdomen and imaged osseous structures are within normal limits. Evaluation of the lung membreno shows resolution of the ground-glass nodule seen previously in the superior segment of the right lower lobe abutting the major fissure. There is mild biapical pleuroparenchymal scarring status quo. There is cylindrical bronchiectasis status quo. No new abnormal nodules, masses, or opacities have developed. IMPRESSION: Lung rads category 1 CT examination. There are no abnormal nodules. Mild stable appearing chronic lung field changes as described above. <Electronically signed by Will Velasquez > 12/31/20 [id number]
== END ==
LOC: M RAD 10:51
PROVIDERS: ATTEND Family Medicine
DX: J98.4 Other disorders of lung (principal); J47.9 Bronchiectasis, uncomplicated

== ENCOUNTER → 2021-03-07 | Outpatient (CLI) | payer BC, OTHER ==
[~2021-03-07] MED LIST changes: +DOXY-443; -DOXY1CAP62; +ISOVUE-300 61% 50ML VIAL As Ordered ONE; +LIDOCAINE 1% MDV 20ML VIAL As Ordered ONE; +methylPREDNISolone SUSP 40MG/ML 1ML VIAL (DEPO MEDROL) As Ordered ONE
--- NOTE | 2021-03-07 17:27 | REP ---
INDICATION: PRIMARY OA LT SHOULdER W/PAIN. COMPARISON: None TECHNIQUE: The procedure was performed by KAYLI Bower, under the direct supervision of Dr. Hills. The benefits and risks of the procedure were explained to the patient, and an informed consent was obtained. Directly prior to the start of the procedure, a formal time-out was completed in the procedure room. The left shoulder joint space was localized using fluoroscopic guidance. The skin was prepped and draped in a sterile fashion. Approximately 5 mL of 1% Lidocaine 10 mg/ml was used as a local anesthetic. Using fluoroscopic guidance, a #22 gauge spinal needle was inserted and advanced into the left shoulder joint space. Approximately 2 mL of Isovue 300 was injected to verify placement. Seven mL of a solution containing 5 mL 1% lidocaine 10 mg/ml and 2 mL Depo-Medrol 40 mg/mL was injected into the joint space. The needle was removed and hemostasis was achieved. FINDINGS: The patient tolerated the procedure well and there were no immediate complications. IMPRESSION: 1. Technically successful left shoulder arthrogram. 0.1 minutes of fluoroscopy time was utilized for this procedure. Some fluoroscopic images are performed with last image hold technology. These images require no additional radiation. <Electronically signed by Angelica Ray > 03/07/21 1157 <Electronically signed by Jg Hills > 03/07/21 0524
== END ==
LOC: M RADPRO 10:47
PROVIDERS: ATTEND Physician Assistant
DX: M19.012 Primary osteoarthritis, left shoulder (principal)
CPT/HCPCS: 20610; 77002; J1030; Q9967

== ENCOUNTER → 2021-04-23 | Outpatient (CLI) | payer BC, OTHER ==
[~2021-04-23] MED LIST changes: -ISOVUE-300 61% 50ML VIAL As Ordered ONE; -LIDOCAINE 1% MDV 20ML VIAL As Ordered ONE; -methylPREDNISolone SUSP 40MG/ML 1ML VIAL (DEPO MEDROL) As Ordered ONE
== END ==
LOC: M RAD 07:20
PROVIDERS: ATTEND Physician Assistant
DX: M50.11 Cervical disc disorder with radiculopathy, high cervical region (principal); M47.22 Other spondylosis with radiculopathy, cervical region; M50.121 Cervical disc disorder at C4-C5 level with radiculopathy; M50.122 Cervical disc disorder at C5-C6 level with radiculopathy; M50.123 Cervical disc disorder at C6-C7 level with radiculopathy

== ENCOUNTER → 2021-05-31 | Outpatient (CLI) | payer OTHER, BC | LOC: M WUC 14:32 | PROVIDERS: ATTEND Nurse Practitioner Family | DX: N40.1 Benign prostatic hyperplasia with lower urinary tract symptoms (principal) ==

== ENCOUNTER → 2021-06-13 | Outpatient (CLI) | payer BC, OTHER | LOC: M RAD 15:28 | PROVIDERS: ATTEND Nurse Practitioner | DX: R39.15 Urgency of urination (principal); N28.1 Cyst of kidney, acquired ==

== ENCOUNTER → 2021-08-06 | Outpatient (REF) | payer BC, OTHER | LOC: M LAB REF 17:23 | PROVIDERS: ATTEND Otolaryngology | DX: J34.2 Deviated nasal septum (principal); J01.00 Acute maxillary sinusitis, unspecified ==

== ENCOUNTER 2021-08-11 15:40 | Emergency (ER) | payer BC, OTHER ==
[~2021-08-11] VITALS: Ht 182.9 cm; Wt 106.8 kg
[2021-08-11 15:40] VITALS: BP 171/90
[2021-08-11] MEDS ORDERED: BACTDSTA (15:53)
== END 2021-08-11 17:16 | disposition home or self-care (01) ==
LOC: M ED 15:40
DX: S93.401A Sprain of unspecified ligament of right ankle, initial encounter (principal); X50.1XXA Overexertion from prolonged static or awkward postures, initial encounter; Y92.89 Other specified places as the place of occurrence of the external cause; Y93.9 Activity, unspecified; Y99.9 Unspecified external cause status; F17.200 Nicotine dependence, unspecified, uncomplicated; Z79.899 Other long term (current) drug therapy; Z88.0 Allergy status to penicillin

== ENCOUNTER → 2021-08-28 | Outpatient (CLI) | payer BC, OTHER ==
[~2021-08-28] MED LIST changes: +BACTDSTA
[2021-08-28 14:00] LABS: ALBUMIN 4.1 GM/DL (3.2-5.2); ALT/SGPT 77 U/L (12-78); BILIRUBIN,TOTAL 0.6 MG/DL (0.2-1.0); BLOOD UREA NITROGEN 16 MG/DL (7-18); CALCIUM LEVEL 9.8 MG/DL (8.5-10.1); CARBON DIOXIDE LEVEL 24 MEQ/L (21-32); CHLORIDE LEVEL 107 MEQ/L (98-107); CHOLESTEROL LEVEL 144 MG/DL (<200); CHOLESTEROL RISK RATIO 4.235 (<5); CREATININE FOR GFR 1.08 MG/DL (0.70-1.30); GLOMERULAR FILTRATION RATE > 60.0 (>56); GLUCOSE, FASTING 94 MG/DL (70-100); HDL CHOLESTEROL 34 MG/DL (>40); LDL CHOLESTEROL 78 MG/DL (<100); NON-HDL-C 110 MG/DL; POTASSIUM SERUM 4.6 MEQ/L (3.5-5.1); SODIUM LEVEL 138 MEQ/L (136-145); TRIGLYCERIDES LEVEL 161 MG/DL (<150)
[2021-08-28 15:17] LABS: HEMOGLOBIN A1c 5.5 %
== END ==
LOC: M PLALAB 10:05
PROVIDERS: ATTEND Family Medicine
DX: Z13.220 Encounter for screening for lipoid disorders (principal); Z13.1 Encounter for screening for diabetes mellitus

== ENCOUNTER 2021-09-01 07:38 | Emergency (ER) | payer BC, OTHER ==
[~2021-09-01] VITALS: Ht 182.9 cm; Wt 101.2 kg
[2021-09-01 07:38] VITALS: BP 118/65
[2021-09-01] MEDS ORDERED: ALFU10TA3 PO (07:48)
[2021-09-01] MEDS ORDERED: MYRB25TA PO (07:48)
[2021-09-01] MEDS ORDERED: MAGN200T PO (07:48)
[2021-09-01] MEDS ORDERED: ELIQ5TAB PO ×3 (10:19→10:53)
== END 2021-09-01 11:07 | disposition home or self-care (01) ==
LOC: M ED 07:38
DX: I82.452 Acute embolism and thrombosis of left peroneal vein (principal); S82.92XD Unspecified fracture of left lower leg, subsequent encounter for closed fracture with routine healing; X58.XXXD Exposure to other specified factors, subsequent encounter; Y92.9 Unspecified place or not applicable; Y93.9 Activity, unspecified; Y99.9 Unspecified external cause status; Z87.442 Personal history of urinary calculi; F17.200 Nicotine dependence, unspecified, uncomplicated; Z79.899 Other long term (current) drug therapy; Z88.0 Allergy status to penicillin

== ENCOUNTER → 2021-09-20 | Outpatient (CLI) | payer BC, OTHER ==
[~2021-09-20] MED LIST changes: +ALFU10TA3 PO; +ELIQ5TAB PO; +MAGN200T PO; +MYRB25TA PO
== END ==
LOC: M LAB 09:53
PROVIDERS: ATTEND Physician Assistant Surgical
DX: R19.7 Diarrhea, unspecified (principal); Z53.9 Procedure and treatment not carried out, unspecified reason

== ENCOUNTER → 2021-09-21 | Outpatient (REF) | payer BC, OTHER ==
[2021-09-21 10:18] LABS: CLOSTRIDIUM DIFFICILE PCR NEGATIVE (NEGATIVE)
== END ==
LOC: M LAB REF 08:49
PROVIDERS: ATTEND Physician Assistant Surgical
DX: R19.7 Diarrhea, unspecified (principal)

== ENCOUNTER → 2022-01-27 | Outpatient (REF) | payer BC, OTHER | LOC: M LAB REF 09:05 | PROVIDERS: ATTEND Internal Medicine Gastroenterology | DX: R10.84 Generalized abdominal pain (principal); K59.1 Functional diarrhea ==

== ENCOUNTER → 2022-01-29 | Outpatient (CLI) | payer BC, OTHER | LOC: M RAD 15:46 | PROVIDERS: ATTEND Physician Assistant | DX: F17.210 Nicotine dependence, cigarettes, uncomplicated (principal) ==

== ENCOUNTER 2022-02-12 19:39 | Emergency (ER) | payer BC, OTHER ==
[~2022-02-12] VITALS: Ht 182.9 cm; Wt 97.7 kg
[2022-02-12 19:40] VITALS: BP 135/82
[2022-02-12 20:10] LABS: BASO % 0.6 % (0.0-1.0); EOS # 0.2 10^3/uL (0.0-0.5); HEMATOCRIT 42.7 % (42.0-52.0); HEMOGLOBIN 14.4 g/dl (13.5-17.5); LYMPH # 2.7 10^3/uL (1.5-5.0); LYMPH % 38.3 % (24.0-44.0); MEAN CORPUSCULAR HEMOGLOBIN 30.3 pg (27.0-33.0); MEAN CORPUSCULAR HGB CONC 33.7 g/dl (32.0-36.5); MEAN CORPUSCULAR VOLUME 89.7 fl (80.0-96.0); MONO # 0.3 10^3/uL (0.0-0.8); MONO % 4.6 % (2.0-8.0); NEUTROPHILS # 3.7 10^3/uL (1.5-8.5); NEUTROPHILS % 53.2 % (36.0-66.0); PLATELET COUNT, AUTOMATED 182 10^3/uL (150-450); RED BLOOD COUNT 4.76 10^6/uL (4.30-6.10)
[2022-02-12 20:48] LABS: ALT/SGPT 29 U/L (12-78); BILIRUBIN,DIRECT 0.2 MG/DL (0.0-0.2); BILIRUBIN,TOTAL 0.4 MG/DL (0.2-1.0); BLOOD UREA NITROGEN 12 MG/DL (7-18); CALCIUM LEVEL 9.1 MG/DL (8.5-10.1); CARBON DIOXIDE LEVEL 26 MEQ/L (21-32); CHLORIDE LEVEL 109 MEQ/L (98-107); CREATININE FOR GFR 0.96 MG/DL (0.70-1.30); GLOMERULAR FILTRATION RATE > 60.0 (>56); GLUCOSE, FASTING 85 MG/DL (70-100); LIPASE 103 U/L (73-393); POTASSIUM SERUM 4.1 MEQ/L (3.5-5.1); SODIUM LEVEL 139 MEQ/L (136-145); TOTAL PROTEIN 6.7 GM/DL (6.4-8.2)
[2022-02-13] MEDS ORDERED: CYCL-707 PO (00:07)
[2022-02-13] MEDS ORDERED: NAPR-837 PO (00:07)
[2022-02-13] MEDS ORDERED: KETOROLAC 30 MG/ML 1ML VIAL IM ONE (01:00)
== END 2022-02-13 00:17 | disposition home or self-care (01) ==
LOC: M ED 19:39
DX: M54.89 Other dorsalgia (principal); M62.830 Muscle spasm of back; Z79.899 Other long term (current) drug therapy; Z88.0 Allergy status to penicillin
CPT/HCPCS: 80048; 80076; 81002; 83690; 85025; 96372; 99282; J1885

== ENCOUNTER → 2022-03-06 | Outpatient (CLI) | payer BC, OTHER ==
[~2022-03-06] MED LIST changes: +E-Z-GAS II EFFERVESCENT PACKET (SODIUM BICARB./CITRIC ACID/SIMETHICONE) As Ordered ONE; +E-Z-HD 98% w/w 340GM SUSP BTL As Ordered ONE; +E-Z-PAQUE 96% w/w SUSP 176GM BTL As Ordered ONE
== END ==
LOC: M RAD 08:22
PROVIDERS: ATTEND Surgery
DX: R13.19 Other dysphagia (principal)

== ENCOUNTER → 2022-05-12 | Outpatient (CLI) | payer BC, OTHER ==
[~2022-05-12] MED LIST changes: -E-Z-GAS II EFFERVESCENT PACKET (SODIUM BICARB./CITRIC ACID/SIMETHICONE) As Ordered ONE; -E-Z-HD 98% w/w 340GM SUSP BTL As Ordered ONE; -E-Z-PAQUE 96% w/w SUSP 176GM BTL As Ordered ONE
[2022-05-12 10:33] LABS: PLATELET COUNT, AUTOMATED 183 10^3/uL (150-450)
[2022-05-12 10:51] LABS: INR 0.93; PROTHROMBIN TIME 12.7 SECONDS (12.5-14.5)
[2022-05-12 10:52] LABS: PARTIAL THROMBOPLASTIN TIME 29.7 SECONDS (24.8-34.2)
== END ==
LOC: M LAB 10:05
PROVIDERS: ATTEND Physician Assistant
DX: M48.02 Spinal stenosis, cervical region (principal)

== ENCOUNTER → 2022-06-11 | Outpatient (REF) | payer BC, OTHER | LOC: M LAB REF 15:25 | PROVIDERS: ATTEND Physician Assistant Medical | DX: J32.9 Chronic sinusitis, unspecified (principal) ==

== ENCOUNTER → 2022-06-16 | Outpatient (CLI) | payer BC, OTHER | LOC: M PLAIMG 14:53 | PROVIDERS: ATTEND Physician Assistant | DX: R05.9 Cough, unspecified (principal) ==

== ENCOUNTER 2022-06-20 13:08 | Emergency (ER) | payer BC, OTHER ==
[~2022-06-20] VITALS: Ht 182.9 cm; Wt 104.2 kg
[2022-06-20 17:15] VITALS: BP 140/83
[2022-06-20 17:33] LABS: BASO # 0.1 10^3/uL (0.0-0.2); BASO % 0.7 % (0.0-1.0); EOS # 0.2 10^3/uL (0.0-0.5); EOS % 3.2 % (0.0-3.0); HEMATOCRIT 44.1 % (42.0-52.0); HEMOGLOBIN 14.8 g/dl (13.5-17.5); LYMPH # 2.4 10^3/uL (1.5-5.0); MEAN CORPUSCULAR HEMOGLOBIN 30.4 pg (27.0-33.0); MEAN CORPUSCULAR HGB CONC 33.6 g/dl (32.0-36.5); MEAN CORPUSCULAR VOLUME 90.6 fl (80.0-96.0); MONO # 0.3 10^3/uL (0.0-0.8); MONO % 4.6 % (2.0-8.0); NEUTROPHILS # 4.1 10^3/uL (1.5-8.5); NEUTROPHILS % 57.1 % (36.0-66.0); PLATELET COUNT, AUTOMATED 167 10^3/uL (150-450); RED BLOOD COUNT 4.87 10^6/uL (4.30-6.10); WHITE BLOOD COUNT 7.2 10^3/uL (4.0-10.0)
[2022-06-20 17:49] LABS: CK-MB VALUE MASS < 1.0 NG/ML (<3.6)
[2022-06-20 17:51] LABS: BLOOD UREA NITROGEN 9 MG/DL (9-23); CALCIUM LEVEL 8.6 MG/DL (8.5-10.1); CARBON DIOXIDE LEVEL 27 MMOL/L (20-31); CHLORIDE LEVEL 109 MMOL/L (98-107); CREATININE FOR GFR 0.96 MG/DL (0.70-1.30); GLOMERULAR FILTRATION RATE > 60.0 (>56); GLUCOSE, FASTING 88 MG/DL (60-100); MAGNESIUM LEVEL 1.9 MG/DL (1.8-2.4); POTASSIUM SERUM 4.2 MMOL/L (3.5-5.1); SODIUM LEVEL 141 MMOL/L (136-145)
[2022-06-20 18:00] LABS: CPK CREATINE PHOSPHOKINASE 121 U/L (46-171); MB/CK RELATIVE INDEX 0.82 (< OR =4)
[2022-06-20] MEDS ORDERED: ISOVUE-370 76% 100ML VIAL As Ordered ONE (18:14)
[2022-06-20] MEDS ORDERED: VENTAER INH (19:35)
== END 2022-06-20 19:42 | disposition home or self-care (01) ==
LOC: M ED 13:08
DX: R07.9 Chest pain, unspecified (principal); R06.00 Dyspnea, unspecified; M79.651 Pain in right thigh; Z88.0 Allergy status to penicillin; Z86.718 Personal history of other venous thrombosis and embolism; Z79.52 Long term (current) use of systemic steroids; Z79.811 Long term (current) use of aromatase inhibitors; Z79.84 Long term (current) use of oral hypoglycemic drugs; Z79.899 Other long term (current) drug therapy

== ENCOUNTER → 2022-06-25 | Outpatient (CLI) | payer BC, OTHER | LOC: M PLAIMG 09:56 | PROVIDERS: ATTEND Physician Assistant Medical | DX: J32.0 Chronic maxillary sinusitis (principal); J32.2 Chronic ethmoidal sinusitis ==

== ENCOUNTER → 2022-08-20 | Outpatient (CLI) | payer BC, OTHER ==
[2022-08-20 17:51] LABS: BASO # 0.1 10^3/uL (0.0-0.2); BASO % 0.6 % (0.0-1.0); EOS # 0.1 10^3/uL (0.0-0.5); EOS % 1.4 % (0.0-3.0); HEMATOCRIT 46.4 % (42.0-52.0); HEMOGLOBIN 15.1 g/dl (13.5-17.5); LYMPH # 2.5 10^3/uL (1.5-5.0); LYMPH % 30.8 % (24.0-44.0); MEAN CORPUSCULAR HGB CONC 32.5 g/dl (32.0-36.5); MEAN CORPUSCULAR VOLUME 92.1 fl (80.0-96.0); MONO # 0.5 10^3/uL (0.0-0.8); PLATELET COUNT, AUTOMATED 189 10^3/uL (150-450); RED BLOOD COUNT 5.04 10^6/uL (4.30-6.10); WHITE BLOOD COUNT 8.1 10^3/uL (4.0-10.0)
[2022-08-20 17:54] LABS: ALBUMIN 4.2 G/DL (3.2-5.2); ALKALINE PHOSPHATASE 69 U/L (46-116); ALT/SGPT 43 U/L (7.0-40); AST/SGOT 33 U/L (<34); BILIRUBIN,TOTAL 0.8 MG/DL (0.3-1.2); BLOOD UREA NITROGEN 14 MG/DL (9-23); CALCIUM LEVEL 9.2 MG/DL (8.5-10.1); CARBON DIOXIDE LEVEL 27 MMOL/L (20-31); CHLORIDE LEVEL 109 MMOL/L (98-107); CHOLESTEROL LEVEL 146 MG/DL (<200); CHOLESTEROL RISK RATIO 4.14 (<5); CREATININE FOR GFR 1.18 MG/DL (0.70-1.30); GLOMERULAR FILTRATION RATE > 60.0 (>56); GLUCOSE, FASTING 69 MG/DL (60-100); HDL CHOLESTEROL 35.2 MG/DL (>40); LDL CHOLESTEROL 86.8 MG/DL (<100); NON-HDL-C 110.8 MG/DL; POTASSIUM SERUM 4.4 MMOL/L (3.5-5.1); SODIUM LEVEL 142 MMOL/L (136-145); TOTAL PROTEIN 6.7 G/DL (5.7-8.2); TRIGLYCERIDES LEVEL 120 MG/DL (<150)
== END ==
LOC: M PLALAB 16:05
PROVIDERS: ATTEND Physician Assistant
DX: Z12.5 Encounter for screening for malignant neoplasm of prostate (principal); F17.210 Nicotine dependence, cigarettes, uncomplicated
CPT/HCPCS: 36415; 80053; 80061; 85025; G0103

== ENCOUNTER → 2022-08-21 | Outpatient (CLI) | payer BC, OTHER ==
[~2022-08-21] MED LIST changes: +E-Z-GAS II EFFERVESCENT PACKET (SODIUM BICARB./CITRIC ACID/SIMETHICONE) As Ordered ONE; +E-Z-HD 98% w/w 340GM SUSP BTL As Ordered ONE; +E-Z-PAQUE 96% w/w SUSP 176GM BTL As Ordered ONE
== END ==
LOC: M RAD 08:57
PROVIDERS: ATTEND Physician Assistant Surgical
DX: R13.19 Other dysphagia (principal); K57.50 Diverticulosis of both small and large intestine without perforation or abscess without bleeding

== ENCOUNTER → 2022-09-30 | Outpatient (CLI) | payer BC, OTHER ==
[~2022-09-30] MED LIST changes: -E-Z-GAS II EFFERVESCENT PACKET (SODIUM BICARB./CITRIC ACID/SIMETHICONE) As Ordered ONE; -E-Z-HD 98% w/w 340GM SUSP BTL As Ordered ONE; -E-Z-PAQUE 96% w/w SUSP 176GM BTL As Ordered ONE
== END ==
LOC: M RAD 12:41
PROVIDERS: ATTEND Physician Assistant
DX: M47.892 Other spondylosis, cervical region (principal); M50.30 Other cervical disc degeneration, unspecified cervical region; M54.12 Radiculopathy, cervical region

== ENCOUNTER → 2022-11-18 | Outpatient (CLI) | payer BC, OTHER ==
[~2022-11-18] MED LIST changes: +METHACHOLINE KIT INH ONE
== END ==
LOC: M CARPUL 12:46
PROVIDERS: ATTEND Nurse Practitioner Adult Health
DX: R05.9 Cough, unspecified (principal)
CPT/HCPCS: 94070; J7674

== ENCOUNTER → 2023-01-29 | Outpatient (CLI) | payer BC, OTHER ==
[~2023-01-29] MED LIST changes: -METHACHOLINE KIT INH ONE
== END ==
LOC: M RAD 09:50
PROVIDERS: ATTEND Internal Medicine Gastroenterology
DX: R10.10 Upper abdominal pain, unspecified (principal); K22.89 Other specified disease of esophagus; K31.89 Other diseases of stomach and duodenum; I85.00 Esophageal varices without bleeding; K25.9 Gastric ulcer, unspecified as acute or chronic, without hemorrhage or perforation; N28.1 Cyst of kidney, acquired; Z90.49 Acquired absence of other specified parts of digestive tract; K76.89 Other specified diseases of liver

== ENCOUNTER → 2023-04-04 | Outpatient (CLI) | payer BC, OTHER | LOC: M SLEEP 20:00 | PROVIDERS: ATTEND Nurse Practitioner Adult Health | DX: G47.33 Obstructive sleep apnea (adult) (pediatric) (principal) ==

== ENCOUNTER → 2023-06-05 | Outpatient (CLI) | payer BC, OTHER | LOC: M RAD 13:46 | PROVIDERS: ATTEND Physician Assistant | DX: Z12.2 Encounter for screening for malignant neoplasm of respiratory organs (principal); F17.210 Nicotine dependence, cigarettes, uncomplicated; J47.9 Bronchiectasis, uncomplicated ==

== ENCOUNTER → 2023-08-11 | Outpatient (REF) | payer BC, OTHER | LOC: M LAB REF 16:24 | PROVIDERS: ATTEND Physician Assistant | DX: R30.0 Dysuria (principal) ==

== ENCOUNTER → 2023-08-28 | Outpatient (CLI) | payer BC ==
[~2023-08-28] MED LIST changes: +GASTROGRAFIN SOLUTION 30ML As Ordered ONE
== END ==
LOC: M RAD 12:31
PROVIDERS: ATTEND Internal Medicine Gastroenterology
DX: R10.32 Left lower quadrant pain (principal); R19.5 Other fecal abnormalities; K59.1 Functional diarrhea; R14.1 Gas pain; K44.9 Diaphragmatic hernia without obstruction or gangrene; K22.2 Esophageal obstruction; K21.9 Gastro-esophageal reflux disease without esophagitis; Z90.49 Acquired absence of other specified parts of digestive tract; N28.1 Cyst of kidney, acquired; K59.00 Constipation, unspecified
CPT/HCPCS: 74176; Q9963

== ENCOUNTER → 2023-09-04 | Outpatient (CLI) | payer BC ==
[~2023-09-04] MED LIST changes: -GASTROGRAFIN SOLUTION 30ML As Ordered ONE
[2023-09-04 07:08] LABS: BASO % 0.2 % (0.0-1.0); EOS # 0.2 10^3/uL (0.0-0.5); EOS % 4.2 % (0.0-3.0); HEMATOCRIT 45.3 % (42.0-52.0); HEMOGLOBIN 15.3 g/dl (13.5-17.5); LYMPH # 1.5 10^3/uL (1.5-5.0); LYMPH % 33.4 % (24.0-44.0); MEAN CORPUSCULAR HEMOGLOBIN 30.6 pg (27.0-33.0); MEAN CORPUSCULAR HGB CONC 33.8 g/dl (32.0-36.5); MEAN CORPUSCULAR VOLUME 90.6 fl (80.0-96.0); MONO # 0.3 10^3/uL (0.0-0.8); MONO % 6.9 % (2.0-8.0); NEUTROPHILS # 2.5 10^3/uL (1.5-8.5); NEUTROPHILS % 55.1 % (36.0-66.0); PLATELET COUNT, AUTOMATED 136 10^3/uL (150-450); WHITE BLOOD COUNT 4.5 10^3/uL (4.0-10.0)
[2023-09-04 07:16] LABS: INR 1.03; PARTIAL THROMBOPLASTIN TIME 31.3 SECONDS (24.8-34.2); PROTHROMBIN TIME 13.2 SECONDS (12.5-14.5)
[2023-09-04 07:34] LABS: ERYTHROCYTE SEDIMENTATION RATE 6 mm/hr (0-20)
[2023-09-04 07:35] LABS: C REACTIVE PROTEIN QUANTITATIV < 0.40 MG/DL (<1.0)
[2023-09-04 07:37] LABS: COMPLEMENT C3 114.6 MG/DL (90.0-170.0); COMPLEMENT C4 27.6 MG/DL (12-36)
[2023-09-04 07:45] LABS: ALBUMIN 3.6 G/DL (3.2-5.2); ALKALINE PHOSPHATASE 73 U/L (46-116); ALT/SGPT 38 U/L (7.0-40); AST/SGOT 49 U/L (<34); BILIRUBIN,TOTAL 0.8 MG/DL (0.3-1.2); BLOOD UREA NITROGEN 12 MG/DL (9-23); CALCIUM LEVEL 8.9 MG/DL (8.3-10.6); CARBON DIOXIDE LEVEL 25 MMOL/L (20-31); CHLORIDE LEVEL 107 MMOL/L (98-107); CHOLESTEROL LEVEL 144 MG/DL (<200); CHOLESTEROL RISK RATIO 4.01 (<5); CREATININE FOR GFR 1.02 MG/DL (0.70-1.30); GLOMERULAR FILTRATION RATE > 60.0 (>49); GLUCOSE, FASTING 105 MG/DL (74-106); HDL CHOLESTEROL 35.9 MG/DL (>40); LDL CHOLESTEROL 93.5 MG/DL (<100); NON-HDL-C 108.1 MG/DL; POTASSIUM SERUM 4.2 MMOL/L (3.5-5.1); PSA SCREENING 0.37 NG/ML (< 4.00); SODIUM LEVEL 139 MMOL/L (136-145); TOTAL 25(OH) VITAMIN D 19.1 NG/ML (20.0-100.0); TRIGLYCERIDES LEVEL 73 MG/DL (<150)
[2023-09-04 08:25] LABS: HEMOGLOBIN A1c 5.4 % (4.0-6.0)
== END ==
LOC: M LAB 06:26
PROVIDERS: ATTEND Physician Assistant
DX: R21 Rash and other nonspecific skin eruption (principal); N40.0 Benign prostatic hyperplasia without lower urinary tract symptoms; Z13.21 Encounter for screening for nutritional disorder; R23.3 Spontaneous ecchymoses; E78.5 Hyperlipidemia, unspecified
CPT/HCPCS: 36415; 80053; 80061; 82306; 83036; 83735; 85025; 85610; 85652; 85730; 86038; 86140; 86160; G0103

== ENCOUNTER → 2023-09-23 | Outpatient (CLI) | payer BC ==
[~2023-09-23] MED LIST changes: +DOXY-323; -DOXY-443
== END ==
LOC: M RAD 08:46
PROVIDERS: ATTEND Internal Medicine Gastroenterology
DX: K59.1 Functional diarrhea (principal); R10.84 Generalized abdominal pain

== ENCOUNTER → 2023-10-28 | Outpatient (CLI) | payer BC ==
[~2023-10-28] MED LIST changes: +ISOVUE-370 76% 100ML VIAL As Ordered ONE
== END ==
LOC: M RAD 12:47
PROVIDERS: ATTEND Internal Medicine Gastroenterology
DX: R10.84 Generalized abdominal pain (principal); K58.9 Irritable bowel syndrome, unspecified; K44.9 Diaphragmatic hernia without obstruction or gangrene; N28.1 Cyst of kidney, acquired
CPT/HCPCS: 74175; Q9967

== ENCOUNTER → 2023-11-11 | Outpatient (CLI) | payer BC ==
[~2023-11-11] MED LIST changes: +ALFU10TA23 PO; -ALFU10TA3 PO; -ISOVUE-370 76% 100ML VIAL As Ordered ONE
[2023-11-11 18:55] LABS: BASO % 0.4 % (0.0-1.0); EOS # 0.2 10^3/uL (0.0-0.5); EOS % 3.2 % (0.0-3.0); HEMATOCRIT 45.4 % (42.0-52.0); HEMOGLOBIN 15.2 g/dl (13.5-17.5); LYMPH # 1.7 10^3/uL (1.5-5.0); LYMPH % 32.8 % (24.0-44.0); MEAN CORPUSCULAR HEMOGLOBIN 30.6 pg (27.0-33.0); MEAN CORPUSCULAR HGB CONC 33.5 g/dl (32.0-36.5); MEAN CORPUSCULAR VOLUME 91.3 fl (80.0-96.0); MONO # 0.3 10^3/uL (0.0-0.8); MONO % 5.7 % (2.0-8.0); NEUTROPHILS # 3.1 10^3/uL (1.5-8.5); NEUTROPHILS % 57.7 % (36.0-66.0); PLATELET COUNT, AUTOMATED 153 10^3/uL (150-450); RED BLOOD COUNT 4.97 10^6/uL (4.30-6.10); WHITE BLOOD COUNT 5.3 10^3/uL (4.0-10.0)
== END ==
LOC: M PLALAB 15:19
PROVIDERS: ATTEND Physician Assistant
DX: D69.6 Thrombocytopenia, unspecified (principal)

== ENCOUNTER → 2023-12-14 | Outpatient (REF) | payer BC | LOC: M LAB REF 11:56 | PROVIDERS: ATTEND Internal Medicine Gastroenterology | DX: R10.84 Generalized abdominal pain (principal); R14.1 Gas pain; R19.5 Other fecal abnormalities; K44.9 Diaphragmatic hernia without obstruction or gangrene ==

== ENCOUNTER → 2024-02-04 | Outpatient (CLI) | payer BC ==
[2024-02-04 18:16] LABS: ALKALINE PHOSPHATASE 119 U/L (46-116); ALT/SGPT 50 U/L (7.0-40); AST/SGOT 28 U/L (<34); BILIRUBIN,TOTAL 0.3 MG/DL (0.3-1.2); BLOOD UREA NITROGEN 15 MG/DL (9-23); CALCIUM LEVEL 9.7 MG/DL (8.3-10.6); CARBON DIOXIDE LEVEL 26 MMOL/L (20-31); CHLORIDE LEVEL 109 MMOL/L (98-107); CREATININE FOR GFR 1.08 MG/DL (0.70-1.30); GLOMERULAR FILTRATION RATE > 60.0 (>49); GLUCOSE, FASTING 90 MG/DL (74-106); POTASSIUM SERUM 4.2 MMOL/L (3.5-5.1); SODIUM LEVEL 139 MMOL/L (136-145); TOTAL 25(OH) VITAMIN D 36.6 NG/ML (20.0-100.0); TOTAL PROTEIN 6.6 G/DL (5.7-8.2)
== END ==
LOC: M PLALAB 16:26
PROVIDERS: ATTEND Physician Assistant
DX: N52.9 Male erectile dysfunction, unspecified (principal); R74.8 Abnormal levels of other serum enzymes; E55.9 Vitamin D deficiency, unspecified

== ENCOUNTER → 2024-02-24 | Outpatient (CLI) | payer BC ==
[~2024-02-24] MED LIST changes: -DOXY-323; +DOXY-441
[2024-02-24 15:22] LABS: ALBUMIN 3.9 G/DL (3.2-5.2); ALKALINE PHOSPHATASE 76 U/L (46-116); ALT/SGPT 43 U/L (7.0-40); AST/SGOT 33 U/L (<34); BILIRUBIN,DIRECT 0.2 MG/DL (<0.4); BILIRUBIN,TOTAL 0.7 MG/DL (0.3-1.2); FERRITIN 91.4 NG/ML (10.5-307.3); IRON (FE) 98 UG/DL (65-175); TOTAL IRON BINDING CAPACITY 338 UG/DL (250-425); TOTAL PROTEIN 6.6 G/DL (5.7-8.2)
[2024-02-24 15:23] LABS: HEPATITIS B SURFACE ANTIBODY NEGATIVE (POSITIVE)
[2024-02-24 15:33] LABS: HEPATITIS B SURFACE ANTIGEN NEGATIVE (NEGATIVE)
[2024-02-24 15:54] LABS: HEPATITIS C VIRUS ABY INDEX < 0.02 INDEX (<0.8)
[2024-02-25 08:38] LABS: T P ELECTROPHORESIS SO 6.5 g/dL (6.1-8.1)
[2024-02-25 10:23] LABS: ALPHA 1 ANTITRYPSIN 157 mg/dL (83-199)
[2024-02-25 12:57] LABS: TISSUE TRANSGLUTAMINASE IgA < 1.0 U/mL (<15.0)
[2024-02-25 15:13] LABS: HEPATITIS A IgG TOTAL REACTIVE (NON-REACTIVE)
[2024-02-25 15:42] LABS: ANA SCREEN, IFA NEGATIVE (NEGATIVE)
[2024-02-26 09:46] LABS: ALBUMIN SPEP 4.2 g/dL (3.8-4.8); ALPHA-1-GLOBULINS SO 0.2 g/dL (0.2-0.3); ALPHA-2-GLOBULINS SO 0.6 g/dL (0.5-0.9); BETA 2 GLOBULIN 0.4 g/dL (0.2-0.5); BETA-GLOBULIN SO 0.4 g/dL (0.4-0.6); GAMMA GLOBULINS SO 0.7 g/dL (0.8-1.7)
[2024-02-26 14:09] LABS: ANTI-MITOCHONDRIAL ANTIBODY NEGATIVE (NEGATIVE)
== END ==
LOC: M LAB 12:34
PROVIDERS: ATTEND Internal Medicine Gastroenterology
DX: R94.5 Abnormal results of liver function studies (principal); R10.84 Generalized abdominal pain; K76.0 Fatty (change of) liver, not elsewhere classified

== ENCOUNTER → 2024-02-25 | Outpatient (REF) | payer BC | LOC: M LAB REF 10:34 | PROVIDERS: ATTEND Internal Medicine Gastroenterology | DX: K59.1 Functional diarrhea (principal); R10.84 Generalized abdominal pain ==

== ENCOUNTER 2024-03-07 05:51 | Emergency (ER) | payer BC ==
[~2024-03-07] VITALS: Ht 182.9 cm; Wt 104.5 kg
[2024-03-07 07:21] LABS: BASO % 0.7 % (0.0-1.0); EOS # 0.2 10^3/uL (0.0-0.5); EOS % 2.5 % (0.0-3.0); HEMATOCRIT 44.3 % (42.0-52.0); HEMOGLOBIN 14.9 g/dl (13.5-17.5); LYMPH # 1.5 10^3/uL (1.5-5.0); LYMPH % 24.2 % (24.0-44.0); MEAN CORPUSCULAR HEMOGLOBIN 30.8 pg (27.0-33.0); MEAN CORPUSCULAR HGB CONC 33.6 g/dl (32.0-36.5); MEAN CORPUSCULAR VOLUME 91.7 fl (80.0-96.0); MONO # 0.4 10^3/uL (0.0-0.8); MONO % 5.8 % (2.0-8.0); NEUTROPHILS % 66.3 % (36.0-66.0); PLATELET COUNT, AUTOMATED 149 10^3/uL (150-450); RED BLOOD COUNT 4.83 10^6/uL (4.30-6.10); WHITE BLOOD COUNT 6.1 10^3/uL (4.0-10.0)
[2024-03-07 07:24] LABS: APPEARANCE, URINE MANUAL CLOUDY (CLEAR); COLOR, URINE MANUAL AMBER (YELLOW); PROTEIN, URINE MANUAL 2+ mg/dL (NEGATIVE); SPECIFIC GRAVITY,URINE MANUAL 1.015 (1.002-1.035)
[2024-03-07 07:25] LABS: BILIRUBIN, URINE MANUAL NEGATIVE (NEGATIVE); BLOOD URINE MANUAL POSITIVE (NEGATIVE); GLUCOSE, URINE (UA) MANUAL NEGATIVE (NEGATIVE); KETONE, URINE MANUAL 1+ mg/dL (NEGATIVE); LEUKOCYTE ESTERASE, URINE MAN POSITIVE (NEGATIVE); NITRITE, URINE MANUAL NEGATIVE (NEGATIVE); UROBILINOGEN, URINE MANUAL NORMAL (NORMAL)
[2024-03-07 07:36] LABS: INR 0.98; PARTIAL THROMBOPLASTIN TIME 31.1 SECONDS (24.8-34.2); PROTHROMBIN TIME 13.3 SECONDS (12.5-14.5)
[2024-03-07 07:55] LABS: RBC, URINE TNTC /hpf (0-3)
[2024-03-07 07:56] LABS: AMORPHOUS SEDIMENT, URINE SMALL AMOUNT (NEGATIVE); BACTERIA, URINE SMALL AMOUNT; HYALINE CAST, URINE NONE SEEN /lpf (0-1); SQUAMOUS EPITHELIAL CELL URINE SMALL AMOUNT /hpf (SMALL AMT)
[2024-03-07] MEDS: KETOROLAC 30 MG/ML 1ML VIAL IM ONE (08:02)
[2024-03-07] MEDS ORDERED: HYDR-4571 PO (08:58)
[2024-03-07] MEDS ORDERED: IBUP-1022 PO (08:58)
[2024-03-07 09:07] VITALS: BP 158/87; TEMP 98.1; O2SAT 96
[2024-03-07 09:16] LABS: ALBUMIN 3.5 G/DL (3.2-5.2); BILIRUBIN,DIRECT 0.2 MG/DL (<0.4); BILIRUBIN,TOTAL 0.5 MG/DL (0.3-1.2); TOTAL PROTEIN 6.1 G/DL (5.7-8.2)
== END 2024-03-07 09:22 | disposition home or self-care (01) ==
LOC: M ED 05:51
DX: N20.0 Calculus of kidney (principal); R31.9 Hematuria, unspecified; N28.1 Cyst of kidney, acquired; J98.11 Atelectasis; N40.0 Benign prostatic hyperplasia without lower urinary tract symptoms; F17.200 Nicotine dependence, unspecified, uncomplicated; F10.10 Alcohol abuse, uncomplicated; Z87.442 Personal history of urinary calculi; Z90.89 Acquired absence of other organs; Z88.0 Allergy status to penicillin; Z79.52 Long term (current) use of systemic steroids; Z79.899 Other long term (current) drug therapy; Z79.1 Long term (current) use of non-steroidal anti-inflammatories (NSAID)
CPT/HCPCS: 74176; 80047; 80076; 81000; 83690; 85025; 85610; 85730; 96372; 99283; J1885

== ENCOUNTER 2024-03-13 01:04 | Emergency (ER) | payer BC ==
[~2024-03-13] VITALS: Ht 182.9 cm; Wt 102.3 kg
[~2024-03-13 01:04] MED LIST changes: +HYDR-4571 PO; +IBUP-1022 PO
[2024-03-13 01:08] VITALS: BP 168/84; TEMP 97.5; O2SAT 97
[2024-03-13] MEDS: TAMSULOSIN 0.4 MG CAP PO ONE (02:01)
[2024-03-13] MEDS: KETOROLAC 30 MG/ML 1ML VIAL IV ONE (02:03)
[2024-03-13 02:25] LABS: BASO % 0.6 % (0.0-1.0); EOS # 0.2 10^3/uL (0.0-0.5); HEMATOCRIT 41.2 % (42.0-52.0); HEMOGLOBIN 14.2 g/dl (13.5-17.5); LYMPH # 1.7 10^3/uL (1.5-5.0); LYMPH % 27.6 % (24.0-44.0); MEAN CORPUSCULAR HEMOGLOBIN 31.3 pg (27.0-33.0); MEAN CORPUSCULAR HGB CONC 34.5 g/dl (32.0-36.5); MEAN CORPUSCULAR VOLUME 90.7 fl (80.0-96.0); MONO # 0.5 10^3/uL (0.0-0.8); MONO % 7.7 % (2.0-8.0); NEUTROPHILS # 3.8 10^3/uL (1.5-8.5); NEUTROPHILS % 60.8 % (36.0-66.0); PLATELET COUNT, AUTOMATED 143 10^3/uL (150-450); RED BLOOD COUNT 4.54 10^6/uL (4.30-6.10); WHITE BLOOD COUNT 6.2 10^3/uL (4.0-10.0)
[2024-03-13 02:31] LABS: BLOOD UREA NITROGEN 15 MG/DL (9-23); CARBON DIOXIDE LEVEL 26 MMOL/L (20-31); CHLORIDE LEVEL 109 MMOL/L (98-107); CREATININE FOR GFR 0.96 MG/DL (0.70-1.30); GLOMERULAR FILTRATION RATE > 60.0 (>49); GLUCOSE, FASTING 115 MG/DL (74-106); POTASSIUM SERUM 3.7 MMOL/L (3.5-5.1); SODIUM LEVEL 141 MMOL/L (136-145)
[2024-03-13] MEDS ORDERED: TAMS1CAP17 PO (02:49)
[2024-03-13] MEDS ORDERED: IBUP-1022 PO (02:50)
== END 2024-03-13 03:28 | disposition home or self-care (01) ==
LOC: M ED 01:04
DX: N20.0 Calculus of kidney (principal); N23 Unspecified renal colic; Z87.442 Personal history of urinary calculi; Z79.899 Other long term (current) drug therapy; Z88.0 Allergy status to penicillin
CPT/HCPCS: 80048; 81001; 85025; 96374; 99284; J1885

== ENCOUNTER → 2024-04-11 | Outpatient (CLI) | payer BC ==
[~2024-04-11] MED LIST changes: +TAMS1CAP17 PO
== END ==
LOC: M RAD 11:49
PROVIDERS: ATTEND Urology
DX: N20.0 Calculus of kidney (principal); N28.1 Cyst of kidney, acquired

== ENCOUNTER 2024-04-17 10:20 | Emergency (ER) | payer BC ==
[~2024-04-17] VITALS: Ht 182.9 cm; Wt 101.3 kg
[2024-04-17] MEDS: TAMSULOSIN 0.4 MG CAP PO ONE (12:48)
[2024-04-17] MEDS: KETOROLAC 30 MG/ML 1ML VIAL IV ONE (12:48)
[2024-04-17] MEDS ORDERED: ONDA-282 PO (13:13)
[2024-04-17] MEDS ORDERED: FLOM0.4C39 PO (13:13)
[2024-04-17 13:40] VITALS: BP 145/83; TEMP 98.1; O2SAT 95
== END 2024-04-17 13:43 | disposition home or self-care (01) ==
LOC: M ED 10:20
DX: N20.1 Calculus of ureter (principal); N28.1 Cyst of kidney, acquired; N40.0 Benign prostatic hyperplasia without lower urinary tract symptoms; G47.00 Insomnia, unspecified; K21.9 Gastro-esophageal reflux disease without esophagitis; M48.02 Spinal stenosis, cervical region; Z87.442 Personal history of urinary calculi; Z86.718 Personal history of other venous thrombosis and embolism; F17.200 Nicotine dependence, unspecified, uncomplicated; Z79.899 Other long term (current) drug therapy; Z88.0 Allergy status to penicillin
CPT/HCPCS: 74176; 81001; 96374; 99284; J1885

== ENCOUNTER → 2024-04-27 | Outpatient (CLI) | payer BC ==
[~2024-04-27] MED LIST changes: +ONDA-282 PO
== END ==
LOC: M RAD 12:09
PROVIDERS: ATTEND Physician Assistant
DX: N20.0 Calculus of kidney (principal)

== ENCOUNTER → 2024-05-25 | Outpatient (CLI) | payer BC | LOC: M RAD 14:48 | PROVIDERS: ATTEND Physician Assistant | DX: N20.1 Calculus of ureter (principal); N28.1 Cyst of kidney, acquired ==

== ENCOUNTER → 2024-06-10 | Outpatient (CLI) | payer BC ==
[2024-06-10 07:56] LABS: HEMATOCRIT 45.1 % (42.0-52.0); HEMOGLOBIN 15.4 g/dl (13.5-17.5); MEAN CORPUSCULAR HEMOGLOBIN 30.3 pg (27.0-33.0); MEAN CORPUSCULAR HGB CONC 34.1 g/dl (32.0-36.5); MEAN CORPUSCULAR VOLUME 88.6 fl (80.0-96.0); PLATELET COUNT, AUTOMATED 152 10^3/uL (150-450); RED BLOOD COUNT 5.09 10^6/uL (4.30-6.10); WHITE BLOOD COUNT 5.1 10^3/uL (4.0-10.0)
[2024-06-10 08:10] LABS: CHOLESTEROL RISK RATIO 3.94 (<5); HDL CHOLESTEROL 31.9 MG/DL (>40); LDL CHOLESTEROL 68.7 MG/DL (<100); NON-HDL-C 94.1 MG/DL
[2024-06-10 08:12] LABS: TOTAL 25(OH) VITAMIN D 66.2 NG/ML (20.0-100.0)
[2024-06-10 08:32] LABS: HEMOGLOBIN A1c 5.4 % (4.0-6.0)
== END ==
LOC: M RAD 06:57
PROVIDERS: ATTEND Nurse Practitioner Family
DX: Z12.2 Encounter for screening for malignant neoplasm of respiratory organs (principal); F17.210 Nicotine dependence, cigarettes, uncomplicated; E55.9 Vitamin D deficiency, unspecified; E78.5 Hyperlipidemia, unspecified; D69.6 Thrombocytopenia, unspecified; Z13.1 Encounter for screening for diabetes mellitus

== ENCOUNTER → 2024-06-10 | Outpatient (CLI) | payer BC ==
[2024-06-10 08:10] LABS: BLOOD UREA NITROGEN 12 MG/DL (9-23); CALCIUM LEVEL 8.8 MG/DL (8.3-10.6); CARBON DIOXIDE LEVEL 28 MMOL/L (20-31); CHLORIDE LEVEL 107 MMOL/L (98-107); CREATININE FOR GFR 1.01 MG/DL (0.70-1.30); GLOMERULAR FILTRATION RATE > 60.0 (>49); GLUCOSE, FASTING 96 MG/DL (74-106); POTASSIUM SERUM 4.4 MMOL/L (3.5-5.1); SODIUM LEVEL 143 MMOL/L (136-145)
== END ==
LOC: M LAB 07:19
PROVIDERS: ATTEND Family Medicine
DX: Z01.818 Encounter for other preprocedural examination (principal)

== ENCOUNTER 2024-06-21 06:56 | Emergency (ER) | payer BC ==
[~2024-06-21] VITALS: Ht 182.9 cm; Wt 106.3 kg
[2024-06-21 07:30] LABS: APPEARANCE, URINE HAZY (CLEAR); BACTERIA, URINE AUTO NEGATIVE (NEGATIVE); BILIRUBIN, URINE AUTO NEGATIVE (NEGATIVE); BLOOD, URINE BLOOD 3+ (NEGATIVE); COLOR, URINE YELLOW (YELLOW); GLUCOSE, URINE (UA) AUTO NEGATIVE (NEGATIVE); KETONE, URINE AUTO NEGATIVE (NEGATIVE); LEUKOCYTE ESTERASE, URINE AUTO NEGATIVE (NEGATIVE); MUCUS, URINE SMALL (NEGATIVE); NITRITE, URINE AUTO NEGATIVE (NEGATIVE); PROTEIN, URINE AUTO 1+ mg/dL (NEGATIVE); RBC, URINE AUTO TNTC /HPF (0-3); SPECIFIC GRAVITY URINE AUTO 1.026 (1.002-1.035); SQUAMOUS EPITHELIAL CELL UR AU 0 /HPF (0-6); WBC, URINE AUTO 0 /HPF (0-3)
[2024-06-21 07:52] LABS: BASO % 0.6 % (0.0-1.0); EOS # 0.2 10^3/uL (0.0-0.5); EOS % 3.7 % (0.0-3.0); HEMATOCRIT 46.4 % (42.0-52.0); HEMOGLOBIN 15.6 g/dl (13.5-17.5); LYMPH # 1.7 10^3/uL (1.5-5.0); LYMPH % 32.9 % (24.0-44.0); MEAN CORPUSCULAR HEMOGLOBIN 30.1 pg (27.0-33.0); MEAN CORPUSCULAR HGB CONC 33.6 g/dl (32.0-36.5); MEAN CORPUSCULAR VOLUME 89.6 fl (80.0-96.0); MONO # 0.3 10^3/uL (0.0-0.8); MONO % 5.4 % (2.0-8.0); PLATELET COUNT, AUTOMATED 178 10^3/uL (150-450); RED BLOOD COUNT 5.18 10^6/uL (4.30-6.10); WHITE BLOOD COUNT 5.2 10^3/uL (4.0-10.0)
[2024-06-21 08:18] LABS: ALBUMIN 3.9 G/DL (3.2-5.2); ALKALINE PHOSPHATASE 77 U/L (40-129); ALT/SGPT 43 U/L (7.0-40); AST/SGOT 34 U/L (<34); BILIRUBIN,TOTAL 0.5 MG/DL (0.3-1.2); BLOOD UREA NITROGEN 14 MG/DL (9-23); CALCIUM LEVEL 9.2 MG/DL (8.3-10.6); CARBON DIOXIDE LEVEL 26 MMOL/L (20-31); CHLORIDE LEVEL 111 MMOL/L (98-107); CREATININE FOR GFR 1.18 MG/DL (0.70-1.30); GLOMERULAR FILTRATION RATE > 60.0 (>49); GLUCOSE, FASTING 96 MG/DL (74-106); POTASSIUM SERUM 4.3 MMOL/L (3.5-5.1); SODIUM LEVEL 144 MMOL/L (136-145); TOTAL PROTEIN 6.7 G/DL (5.7-8.2)
[2024-06-21] MEDS ORDERED: FLOM0.4C39 PO (08:55)
[2024-06-21] MEDS: KETOROLAC 30 MG/ML 1ML VIAL IV ONE (09:02)
[2024-06-21 09:21] VITALS: BP 131/82; TEMP 96.9; O2SAT 95
== END 2024-06-21 09:23 | disposition home or self-care (01) ==
LOC: M ED 06:56
DX: N20.0 Calculus of kidney (principal); Z88.0 Allergy status to penicillin
CPT/HCPCS: 74176; 80053; 81001; 85025; 96374; 99284; J1885

== ENCOUNTER → 2024-06-23 | Outpatient (CLI) | payer BC | LOC: M EKG 16:28 | PROVIDERS: ATTEND Urology | DX: Z01.810 Encounter for preprocedural cardiovascular examination (principal); N20.1 Calculus of ureter ==

== ENCOUNTER → 2024-07-05 | Outpatient (REF) | payer BC | LOC: M LAB REF 17:31 | PROVIDERS: ATTEND Nurse Practitioner Family | DX: R30.0 Dysuria (principal) ==

== ENCOUNTER → 2024-07-25 | Outpatient (CLI) | payer BC ==
[2024-07-25 14:09] LABS: APPEARANCE, URINE HAZY (CLEAR); BACTERIA, URINE AUTO NEGATIVE (NEGATIVE); BILIRUBIN, URINE AUTO NEGATIVE (NEGATIVE); BLOOD, URINE BLOOD 3+ (NEGATIVE); COLOR, URINE AMBER (YELLOW); GLUCOSE, URINE (UA) AUTO NEGATIVE (NEGATIVE); KETONE, URINE AUTO TRACE mg/dL (NEGATIVE); LEUKOCYTE ESTERASE, URINE AUTO 2+ (NEGATIVE); MUCUS, URINE MODERATE (NEGATIVE); NITRITE, URINE AUTO NEGATIVE (NEGATIVE); PROTEIN, URINE AUTO 2+ mg/dL (NEGATIVE); RBC, URINE AUTO TNTC /HPF (0-3); SPECIFIC GRAVITY URINE AUTO 1.026 (1.002-1.035); SQUAMOUS EPITHELIAL CELL UR AU 0 /HPF (0-6); WBC, URINE AUTO 2 /HPF (0-3)
== END ==
LOC: M LAB 13:32
PROVIDERS: ATTEND Urology
DX: N20.1 Calculus of ureter (principal)

== ENCOUNTER → 2024-07-27 | Outpatient (CLI) | payer BC ==
[2024-07-27 13:40] LABS: HEMATOCRIT 44.2 % (42.0-52.0); HEMOGLOBIN 14.8 g/dl (13.5-17.5); MEAN CORPUSCULAR HEMOGLOBIN 29.9 pg (27.0-33.0); MEAN CORPUSCULAR HGB CONC 33.5 g/dl (32.0-36.5); MEAN CORPUSCULAR VOLUME 89.3 fl (80.0-96.0); PLATELET COUNT, AUTOMATED 180 10^3/uL (150-450); RED BLOOD COUNT 4.95 10^6/uL (4.30-6.10); WHITE BLOOD COUNT 6.4 10^3/uL (4.0-10.0)
[2024-07-27 13:42] LABS: C REACTIVE PROTEIN QUANTITATIV < 0.50 MG/DL (<1.0)
[2024-07-27 13:49] LABS: ERYTHROCYTE SEDIMENTATION RATE 11 mm/hr (0-20)
[2024-07-27 14:49] LABS: ALBUMIN 3.5 G/DL (3.2-5.2); ALKALINE PHOSPHATASE 73 U/L (40-129); ALT/SGPT 45 U/L (7.0-40); AST/SGOT 31 U/L (<34); BILIRUBIN,TOTAL 0.5 MG/DL (0.3-1.2); BLOOD UREA NITROGEN 11 MG/DL (9-23); CARBON DIOXIDE LEVEL 26 MMOL/L (20-31); CHLORIDE LEVEL 110 MMOL/L (98-107); CREATININE FOR GFR 1.03 MG/DL (0.70-1.30); GLOMERULAR FILTRATION RATE > 60.0 (>49); GLUCOSE, FASTING 104 MG/DL (74-106); POTASSIUM SERUM 4.3 MMOL/L (3.5-5.1); SODIUM LEVEL 144 MMOL/L (136-145); TOTAL PROTEIN 6.4 G/DL (5.7-8.2)
== END ==
LOC: M LAB 12:31
PROVIDERS: ATTEND Internal Medicine Gastroenterology
DX: R10.84 Generalized abdominal pain (principal); R94.5 Abnormal results of liver function studies; R14.1 Gas pain; K76.0 Fatty (change of) liver, not elsewhere classified; R19.7 Diarrhea, unspecified; K92.1 Melena

== ENCOUNTER → 2024-07-28 | Outpatient (REF) | payer BC | LOC: M LAB REF 11:38 | PROVIDERS: ATTEND Internal Medicine Gastroenterology | DX: R10.84 Generalized abdominal pain (principal); K59.1 Functional diarrhea; R94.5 Abnormal results of liver function studies; R14.1 Gas pain; K58.9 Irritable bowel syndrome, unspecified; K76.0 Fatty (change of) liver, not elsewhere classified; R19.7 Diarrhea, unspecified; K92.1 Melena ==

== ENCOUNTER 2024-08-06 19:52 | Emergency (ER) | payer BC ==
[~2024-08-06] VITALS: Ht 182.9 cm; Wt 234.0 kg
[2024-08-06] MEDS ORDERED: LOSA25TA13 (19:58)
[2024-08-06 20:10] VITALS: TEMP 98.5
[2024-08-06 20:29] LABS: BASO % 0.5 % (0.0-1.0); EOS # 0.2 10^3/uL (0.0-0.5); EOS % 3.1 % (0.0-3.0); HEMATOCRIT 42.1 % (42.0-52.0); HEMOGLOBIN 14.3 g/dl (13.5-17.5); LYMPH # 2.3 10^3/uL (1.5-5.0); LYMPH % 34.5 % (24.0-44.0); MEAN CORPUSCULAR HEMOGLOBIN 30.6 pg (27.0-33.0); MEAN CORPUSCULAR VOLUME 90.1 fl (80.0-96.0); MONO # 0.5 10^3/uL (0.0-0.8); MONO % 7.5 % (2.0-8.0); NEUTROPHILS # 3.5 10^3/uL (1.5-8.5); NEUTROPHILS % 54.1 % (36.0-66.0); PLATELET COUNT, AUTOMATED 150 10^3/uL (150-450); RED BLOOD COUNT 4.67 10^6/uL (4.30-6.10); WHITE BLOOD COUNT 6.5 10^3/uL (4.0-10.0)
[2024-08-06 20:46] LABS: INR 0.91; PROTHROMBIN TIME 12.6 SECONDS (12.5-14.5)
[2024-08-06 20:52] LABS: LIPASE 33 U/L (12-53)
[2024-08-06 20:54] LABS: ALBUMIN 3.5 G/DL (3.2-5.2); ALKALINE PHOSPHATASE 89 U/L (40-129); ALT/SGPT 48 U/L (7.0-40); AST/SGOT 33 U/L (<34); BILIRUBIN,DIRECT 0.1 MG/DL (<0.4); BILIRUBIN,TOTAL 0.4 MG/DL (0.3-1.2); BLOOD UREA NITROGEN 12 MG/DL (9-23); CALCIUM LEVEL 8.4 MG/DL (8.3-10.6); CARBON DIOXIDE LEVEL 24 MMOL/L (20-31); CHLORIDE LEVEL 112 MMOL/L (98-107); CPK CREATINE PHOSPHOKINASE 121 U/L (46-171); GLOMERULAR FILTRATION RATE > 60.0 (>49); GLUCOSE, FASTING 141 MG/DL (74-106); POTASSIUM SERUM 3.6 MMOL/L (3.5-5.1); SODIUM LEVEL 143 MMOL/L (136-145); TOTAL PROTEIN 6.2 G/DL (5.7-8.2)
[2024-08-06 21:30] VITALS: BP 134/77; O2SAT 93
[2024-08-06 21:34] LABS: CK-MB VALUE MASS < 1.0 NG/ML (<3.6); MB/CK RELATIVE INDEX 0.82 (< OR =4)
[2024-08-06 21:53] LABS: CPK CREATINE PHOSPHOKINASE 113 U/L (46-171)
[2024-08-06 21:54] LABS: CK-MB VALUE MASS < 1.0 NG/ML (<3.6); MB/CK RELATIVE INDEX 0.88 (< OR =4)
== END 2024-08-07 02:21 | disposition home or self-care (01) ==
LOC: M ED 19:52
DX: R07.89 Other chest pain (principal); I12.9 Hypertensive chronic kidney disease with stage 1 through stage 4 chronic kidney disease, or unspecified chronic kidney disease; Z87.442 Personal history of urinary calculi; Z96.0 Presence of urogenital implants; Z88.0 Allergy status to penicillin

== ENCOUNTER 2024-08-18 06:56 | Emergency (ER) | payer BC ==
[~2024-08-18] VITALS: Ht 177.8 cm; Wt 104.8 kg
[~2024-08-18 06:56] MED LIST changes: +LOSA25TA13
[2024-08-18] MEDS ORDERED: SILD100T (07:13)
[2024-08-18 07:36] LABS: BASO # 0.1 10^3/uL (0.0-0.2); EOS # 0.1 10^3/uL (0.0-0.5); EOS % 2.7 % (0.0-3.0); HEMATOCRIT 43.5 % (42.0-52.0); HEMOGLOBIN 14.7 g/dl (13.5-17.5); LYMPH # 1.7 10^3/uL (1.5-5.0); LYMPH % 32.9 % (24.0-44.0); MEAN CORPUSCULAR HEMOGLOBIN 30.6 pg (27.0-33.0); MEAN CORPUSCULAR HGB CONC 33.8 g/dl (32.0-36.5); MEAN CORPUSCULAR VOLUME 90.4 fl (80.0-96.0); MONO # 0.3 10^3/uL (0.0-0.8); MONO % 6.3 % (2.0-8.0); NEUTROPHILS % 56.7 % (36.0-66.0); PLATELET COUNT, AUTOMATED 166 10^3/uL (150-450); RED BLOOD COUNT 4.81 10^6/uL (4.30-6.10); WHITE BLOOD COUNT 5.3 10^3/uL (4.0-10.0)
[2024-08-18 07:43] LABS: INR 0.91; PROTHROMBIN TIME 12.6 SECONDS (12.5-14.5)
[2024-08-18 07:56] LABS: CK-MB VALUE MASS 1.5 NG/ML (<3.6)
[2024-08-18] MEDS: KETOROLAC 30 MG/ML 1ML VIAL IV ONE (07:56)
[2024-08-18 07:59] LABS: ALBUMIN 3.7 G/DL (3.2-5.2); BILIRUBIN,DIRECT 0.2 MG/DL (<0.4); BILIRUBIN,TOTAL 0.5 MG/DL (0.3-1.2); CALCIUM LEVEL 8.7 MG/DL (8.3-10.6); CREATININE FOR GFR 0.96 MG/DL (0.70-1.30); GLOMERULAR FILTRATION RATE 89.9 (>49); POTASSIUM SERUM 4.3 MMOL/L (3.5-5.1); TOTAL PROTEIN 6.2 G/DL (5.7-8.2)
[2024-08-18 08:00] LABS: FREE T4 1.1 NG/DL (0.89-1.76)
[2024-08-18 08:04] LABS: THYROID STIMULATING HORMONE 1.365 uIU/ML (0.55-4.78)
[2024-08-18 08:05] LABS: MB/CK RELATIVE INDEX 0.98 (< OR =4)
[2024-08-18] MEDS ORDERED: ISOVUE-370 76% 100ML VIAL As Ordered ONE (08:41)
[2024-08-18 09:00] LABS: CK-MB VALUE MASS 1.4 NG/ML (<3.6)
[2024-08-18 09:35] LABS: MB/CK RELATIVE INDEX 0.95 (< OR =4)
[2024-08-18 11:22] VITALS: BP 143/90; TEMP 97.3; O2SAT 96
== END 2024-08-18 11:30 | disposition home or self-care (01) ==
LOC: M ED 06:56
DX: R07.9 Chest pain, unspecified (principal); I10 Essential (primary) hypertension; Z86.718 Personal history of other venous thrombosis and embolism; Z88.0 Allergy status to penicillin; F17.200 Nicotine dependence, unspecified, uncomplicated
CPT/HCPCS: 71045; 71275; 80048; 80076; 82550; 82553; 83690; 84439; 84443; 84484; 85025; 85610; 85730; 93005; 93041; 94760; 96374; 99285; J1885; Q9967

== ENCOUNTER 2024-08-28 09:42 | Emergency (ER) | payer BC ==
[~2024-08-28] VITALS: Ht 182.9 cm; Wt 103.9 kg
[~2024-08-28 09:42] MED LIST changes: +SILD100T
[2024-08-28 09:48] VITALS: TEMP 98.5
[2024-08-28 10:30] VITALS: BP 164/94
[2024-08-28 10:56] LABS: BASO % 0.5 % (0.0-1.0); EOS # 0.1 10^3/uL (0.0-0.5); HEMATOCRIT 44.6 % (42.0-52.0); HEMOGLOBIN 15.1 g/dl (13.5-17.5); LYMPH # 1.6 10^3/uL (1.5-5.0); LYMPH % 25.2 % (24.0-44.0); MEAN CORPUSCULAR HEMOGLOBIN 30.9 pg (27.0-33.0); MEAN CORPUSCULAR HGB CONC 33.9 g/dl (32.0-36.5); MEAN CORPUSCULAR VOLUME 91.2 fl (80.0-96.0); MONO # 0.3 10^3/uL (0.0-0.8); MONO % 4.7 % (2.0-8.0); NEUTROPHILS # 4.4 10^3/uL (1.5-8.5); NEUTROPHILS % 67.4 % (36.0-66.0); PLATELET COUNT, AUTOMATED 156 10^3/uL (150-450); RED BLOOD COUNT 4.89 10^6/uL (4.30-6.10); WHITE BLOOD COUNT 6.4 10^3/uL (4.0-10.0)
[2024-08-28] MEDS: NS (Normal Saline) 0.9% 1,000 ML IV ONE (11:05)
[2024-08-28] MEDS: KETOROLAC 30 MG/ML 1ML VIAL IV ONE (11:06)
[2024-08-28 11:12] VITALS: O2SAT 94
[2024-08-28 11:27] LABS: BLOOD UREA NITROGEN 9 MG/DL (9-23); CALCIUM LEVEL 8.6 MG/DL (8.3-10.6); CARBON DIOXIDE LEVEL 26 MMOL/L (20-31); CHLORIDE LEVEL 111 MMOL/L (98-107); CREATININE FOR GFR 0.95 MG/DL (0.70-1.30); GLOMERULAR FILTRATION RATE > 90.0 (>49); GLUCOSE, FASTING 85 MG/DL (74-106); POTASSIUM SERUM 3.9 MMOL/L (3.5-5.1); SODIUM LEVEL 142 MMOL/L (136-145)
[2024-08-28 11:40] LABS: KETONE, URINE AUTO RFX NEGATIVE (NEGATIVE); LEUKOCYTE ESTERASE UR AUTO RFX NEGATIVE (NEGATIVE); MUCUS, URINE RFX SMALL (NEGATIVE); NITRITE, URINE AUTO RFX NEGATIVE (NEGATIVE); RBC, URINE AUTO RFX 0 /HPF (0-3); SQUAM EPITHELIAL CELL UR AURFX 0 /HPF (0-6); WBC, URINE AUTO RFX 0 /HPF (0-3)
== END 2024-08-28 13:09 | disposition home or self-care (01) ==
LOC: M ED 09:42
DX: R10.9 Unspecified abdominal pain (principal); I10 Essential (primary) hypertension; Z87.442 Personal history of urinary calculi; F17.200 Nicotine dependence, unspecified, uncomplicated; Z79.899 Other long term (current) drug therapy; Z88.0 Allergy status to penicillin
CPT/HCPCS: 74176; 80047; 80048; 81001; 85025; 96361; 96374; 99284; J1885

== ENCOUNTER → 2024-09-29 | Outpatient (REF) | payer BC ==
[~2024-09-29] MED LIST changes: -FLOM0.4C39 PO; +TAMS-18 PO
== END ==
LOC: M LAB REF 17:42
PROVIDERS: ATTEND Internal Medicine Gastroenterology
DX: R10.84 Generalized abdominal pain (principal); R19.7 Diarrhea, unspecified; K31.89 Other diseases of stomach and duodenum; R19.4 Change in bowel habit

== ENCOUNTER → 2025-02-10 | Outpatient (CLI) | payer BC ==
[~2025-02-10] MED LIST changes: -IBUP-1022 PO; +IBUP600T42 PO
== END ==
LOC: M WUC 11:32
PROVIDERS: ATTEND Nurse Practitioner Family
DX: M25.50 Pain in unspecified joint (principal)

== ENCOUNTER → 2025-04-14 | Outpatient (CLI) | payer BC ==
[~2025-04-14] MED LIST changes: -BACTDSTA; +SULF-8
== END ==
LOC: M RAD 14:30
PROVIDERS: ATTEND Internal Medicine Gastroenterology
DX: K59.00 Constipation, unspecified (principal)